=== PATIENT | female | born 1955 | race Caucasian/White ===

== ENCOUNTER → 2023-07-09 11:45 | Outpatient (REF) | payer OTHER, SELFPAY | LOC: HWWDC 11:45 | PROVIDERS: ATTENDING PHYSICIAN Obstetrics & Gynecology Gynecology; FAMILY PHYSICIAN Student in an Organized Health Care Education/Training Program | DX: Z12.31 Encounter for screening mammogram for malignant neoplasm of breast (principal) | CPT/HCPCS: 77063; 77067 ==

== ENCOUNTER → 2023-10-09 06:47 | Outpatient (REF) | payer OTHER, SELFPAY | LOC: MRI 3T 06:47 | PROVIDERS: ATTENDING PHYSICIAN Student in an Organized Health Care Education/Training Program | DX: M54.31 Sciatica, right side (principal) | CPT/HCPCS: 72148 ==

== ENCOUNTER → 2024-04-09 19:39 | Outpatient (REF) | payer OTHER, SELFPAY | LOC: MRI 19:39 | PROVIDERS: ATTENDING PHYSICIAN Psychiatry & Neurology Neurology; FAMILY PHYSICIAN Student in an Organized Health Care Education/Training Program | DX: M54.16 Radiculopathy, lumbar region (principal) | CPT/HCPCS: 72158; A9575 ==

== ENCOUNTER → 2024-04-18 13:15 | Outpatient (REF) | payer OTHER, SELFPAY | LOC: HWRAD 13:15 | PROVIDERS: ATTENDING PHYSICIAN Physician Assistant; FAMILY PHYSICIAN Student in an Organized Health Care Education/Training Program; REFERRING PHYSICIAN Internal Medicine Medical Oncology | DX: H65.21 Chronic serous otitis media, right ear (principal) | CPT/HCPCS: 70480 ==

== ENCOUNTER → 2024-05-09 16:57 | Outpatient (REF) | payer OTHER, SELFPAY | LOC: MRI 3T 16:57 | PROVIDERS: ATTENDING PHYSICIAN Psychiatry & Neurology Neurology; FAMILY PHYSICIAN Student in an Organized Health Care Education/Training Program | DX: G58.0 Intercostal neuropathy (principal) | CPT/HCPCS: 72197; A9575 ==

== ENCOUNTER → 2024-07-22 14:01 | Outpatient (REF) | payer OTHER, SELFPAY ==
[2024-07-22 14:41] LABS: % Basophils 0.5 % (0-2); % Eosinophils 1.8 % (0-6); % Immature Granulocytes 0.3 % (0-0.5); % Lymphocytes 8.3 % (20.5-51.1); % Monocytes 12.1 % (1.7-9.3); Absolute Eosinophils 0.1 10^3/uL (0-0.7); Absolute Lymphocytes 0.3 10^3/uL (1.2-3.4); Absolute Monocytes 0.5 10^3/uL (0.1-0.6); Absolute Neutrophils 3.1 10^3/uL (1.4-6.5); Hematocrit 28.4 % (37.0-47.0); Hemoglobin 9.6 g/dL (12.0-16.0); Mean Corp Hgb Conc. 33.8 g/dL (33.0-37.0); Mean Corpuscular Hgb 32.3 pg (27.0-31.0); Mean Corpuscular Volume 95.6 fL (81.0-99.0); Mean Platelet Volume 10.3 fL (7.4-10.4); Nucleated Red Blood Cells % 0 %; Platelet Count 122 10^3/uL (130-400); Red Blood Cell Count 2.97 10^6/uL (4.20-5.40)
[2024-07-22 14:43] LABS: Urine Albumin 1+ (Neg - Trace); Urine Bilirubin Negative (Negative); Urine Character Clear (Clear); Urine Color Yellow; Urine Glucose Negative (Negative); Urine Ketone Negative (Negative); Urine Leukocyte 1+ (Negative); Urine Nitrite Negative (Negative); Urine Occult Blood Negative (Negative); Urine Specific Gravity 1.015 (<1.030); Urine Urobilinogen Negative (Neg - 1+)
[2024-07-22 14:49] LABS: ALT (SGPT) 13 U/L (0-35); AST (SGOT) 18 U/L (14-36); Albumin 3.8 g/dl (3.5-5.0); Alkaline Phosphatase 38 U/L (38-126); Blood Urea Nitrogen 31 mg/dl (7-17); Calcium 9.3 mg/dl (8.4-10.2); Carbon Dioxide 32 mmol/L (22-30); Chloride 98 mmol/L (98-107); Glucose 93 mg/dl (70-99); Sodium 138 mmol/L (135-145); Total Bilirubin 0.4 mg/dl (0.2-1.3); eGFR > 60.00
[2024-07-22 15:04] LABS: Procalcitonin < 0.05 ng/ml (0.0-0.25)
[2024-07-22 15:10] LABS: Urine Bacteria Few (Negative); Urine Red Blood Cell 0-2 /HPF (0-2); Urine Squamous Cell 0-2 /LPF (Few)
[2024-07-22 15:17] LABS: Erythrocyte Sed Rate 21 mm/hour (0-20)
[2024-07-22 15:42] LABS: D-Dimer 2.07 ug/mlFEU (0.00-0.50)
== END ==
LOC: REG 14:01
PROVIDERS: ATTENDING PHYSICIAN Student in an Organized Health Care Education/Training Program
DX: I95.9 Hypotension, unspecified (principal)
CPT/HCPCS: 36415; 80053; 81003; 81015; 84145; 85025; 85379; 85652; 87086

== ENCOUNTER 2024-07-22 15:42 | Emergency (ER) | payer OTHER, SELFPAY ==
[2024-07-22 15:46] VITALS: BP 100/54
[2024-07-22 17:32] VITALS: BP 101/50
[2024-07-22 18:00] VITALS: BP 91/44
[2024-07-22 19:00] VITALS: BP 98/53
[2024-07-22] MEDS: NSS 1000 IV (19:43)
[2024-07-22 20:00] VITALS: BP 115/63
[2024-07-22 20:13] LABS: COVID-19 Antigen Negative (Negative)
[2024-07-22 21:00] VITALS: BP 92/52
--- NOTE | 2024-07-22 21:36 | ED.GENMED ---
History of Present Illness
General
Chief Complaint: Blood Pressure Problem
Source: patient and spouse
Time Seen by Provider: 07/22/24 17:58
History of Present Illness
History of Present Illness:
68-year-old female with a significant past medical history including lung cancer which has become widely metastatic including brain and spine. Patient is unable to ambulate due to the spinal mets. She has received radiation of the brain into the
spine. Because of her inability to ambulate she has started develop a small pressure ulcer on the sacrum. Blood pressure today was measured as quite low so patient was referred to the emergency room. She reportedly had a fever at home. She
reports to be up to 101. She denies cough, chest pain, shortness of breath. She is not vomiting but has poor oral intake.
Past History
Past History
ED Past Medical History: HTN and Hypercholesterolemia
ED Past Surgical History: Gynecological (Benign lumps removed from breast) and Orthopedic
Social History
Tobacco: Non-smoker
Alcohol: Occasional
Drug: None
Personal:
Living: with family
Employment: Other (Laid off until April)
Family History
Family History: Unable to obtain
Phy Exam
Physical Exam
Physical Exam:
General: Awake, Alert, Oriented X3. Chronic ill-appearing and cachectic
Vitals: Mildly hypotensive
Head: Atraumatic
Eyes: Pupils equal, EOMI
Throat: Airway intact, no exudates, dry mucosa
Neck: Trachea midline
Lungs: Clear and equal b/l
Heart: Regular rate, no murmurs
Abd: Soft, Nontender, No pulsatile mass
Rectal: Deferred. Wound noted over the sacrum which is about the size of a dime.
Neuro: Lower extremity weakness related to spinal mets
Skin: Warm, dry, no rash
Extremities: pulses equal b/l, no edema
Course
Orders/Labs/Results
Orders:
Orders
07/22/24 19:00
0.9% Sodium Chloride 1000 ml [Nss] 1,000 ml IV BOLUS
07/22/24 19:44
COVID-19 Antigen Urgent
Source: Nasal Swab
Influenza A+B Rapid Molecular Urgent
RACHAEL Source: Nasal Swab
Specimen Description:
Vital Signs
Initial and Last Documented VS:
Initial Vital Signs
Temp Pulse Resp BP Pulse Ox
98.5 F 68 16 100/54 98
07/22/24 15:46 07/22/24 15:46 07/22/24 15:46 07/22/24 15:46 07/22/24 15:46
Last Documented Vital Signs
Temp Pulse Resp BP Pulse Ox
98.5 F 65 15 92/52 97
07/22/24 15:46 07/22/24 21:45 07/22/24 21:45 07/22/24 21:00 07/22/24 21:45
MDM/Problems Addressed
Differential Diagnosis Includes:
Dehydration, anemia, hypotension from sepsis.
MDM/Problems Addressed:
Patient presents with generalized weakness, poor oral intake and hypotension noted by visiting nurse. Patient appears dehydrated. She better after IV fluid. She is not febrile here. COVID and flu are negative. Patient had outpatient labs this
morning which showed a normal procalcitonin, normal urinalysis. Patient's white count was normal. She is not neutropenic. A chest x-ray was ordered however the patient alerted the nurse that she is feeling much better after IV hydration and is
anxious to be discharged home. That we have not completely excluded all possible reasons for hypotension I think it is likely related to poor oral intake and dehydration. Given patient's widely metastatic disease I think it is reasonable for her
to spend as much time at home as possible. If she desires to be discharged I do not have a problem with that patient can follow-up with her oncologist as an outpatient
*Pulse Oximetry
Patient hypoxic: no
*Critical Care Note
Total Time (30-74mins, 75-104mins- exclusive of procedures): Not Applicable
Patient Management
Social determinants of health affecting care: Strong social support
ED Attending Note
-
Portions of this chart may have been created with voice recognition software.� Occasional wrong word or��sound alike� substitutions may have occurred due to the inherent limitations of voice recognition software.
Discharge Plan
Departure
Patient Disposition: Home (Routine Discharge)
Date of Disposition: 07/22/24
Time of Disposition: 21:37
Patient with high blood pressure during this ER visit?: No
Condition: Good
Discharge Problem:
Acute dehydration, Lung cancer
Instructions: Dehydration in adults - ED discharge instructions
Prescriptions:
No Action
atorvastatin 10 mg tablet
10 mg PO DAILY
esomeprazole magnesium [Nexium] 20 mg Capsule,Delayed Release(Dr/Ec)
20 mg PO DAILY
meclizine 25 mg Tablet
25 mg PO Q8HPRN PRN (Reason: Dizziness / nausea) Qty: 10 0RF
ondansetron 4 mg Tablet,Disintegrating
4 mg PO Q8H
nitrofurantoin macrocrystal 100 mg Capsule
100 mg PO BID
Rx Instructions:
just started on 07/03/22
Referrals:
Sharmin Mattson MD [Family Provider] -
Interventions
Interventions:
*Risk Screen - Suicide Last Done: 07/22/24 15:46
*General Assessment Last Done: 07/22/24 15:46
*Neglect/Abuse Screening Last Done: 07/22/24 17:41
*ED- Fall Risk Assessment Last Done: 07/22/24 17:41
*ED COVID-19 Vaccine History Last Done: 07/22/24 15:46
*Nursing Disposition Last Done: 07/22/24 22:09
ED- Cardiac Assessment Last Done: 07/22/24 19:32
ED- Neurological Assessment Last Done: 07/22/24 19:32
ED- Pulmonary Assessment Last Done: 07/22/24 19:32
Discharge Date and Time
Discharge Date/Time: 07/22/24 22:09
Print Language: HUNGARIAN
== END 2024-07-22 22:09 | disposition home or self-care (01) ==
LOC: EMR 15:42
PROVIDERS: EMERGENCY PHYSICIAN Emergency Medicine; FAMILY PHYSICIAN Student in an Organized Health Care Education/Training Program
DX: E86.0 Dehydration (principal); C34.90 Malignant neoplasm of unspecified part of unspecified bronchus or lung; C79.31 Secondary malignant neoplasm of brain; C79.51 Secondary malignant neoplasm of bone; E78.00 Pure hypercholesterolemia, unspecified; I10 Essential (primary) hypertension; Z92.3 Personal history of irradiation; Z11.52 Encounter for screening for COVID-19
CPT/HCPCS: 96360; 99284; 87502; 87811

== ENCOUNTER 2024-08-04 22:28 | Inpatient (IN) | payer OTHER, SELFPAY ==
[2024-08-04] VITALS (7 sets, daily range): BP systolic 90–103; BP diastolic 55–68; BMI 16.1
[2024-08-04 14:47] LABS: % Basophils 0.3 % (0-2); % Eosinophils 0.1 % (0-6); % Immature Granulocytes 0.5 % (0-0.5); % Lymphocytes 3.8 % (20.5-51.1); % Monocytes 6.8 % (1.7-9.3); % Neutrophils 88.5 % (42.2-75.2); Absolute Immature Granulocytes 0.1 10^3/uL (0-0.05); Absolute Lymphocytes 0.4 10^3/uL (1.2-3.4); Absolute Monocytes 0.7 10^3/uL (0.1-0.6); Absolute Neutrophils 8.5 10^3/uL (1.4-6.5); Hemoglobin 8.7 g/dL (12.0-16.0); Mean Corp Hgb Conc. 33.5 g/dL (33.0-37.0); Mean Corpuscular Hgb 32.3 pg (27.0-31.0); Mean Corpuscular Volume 96.7 fL (81.0-99.0); Mean Platelet Volume 10.5 fL (7.4-10.4); Nucleated Red Blood Cells % 0 %; Platelet Count 145 10^3/uL (130-400); Red Blood Cell Count 2.69 10^6/uL (4.20-5.40); Red Cell Dist. Width 14.5 % (11.5-14.5); White Blood Cell Count 9.6 10^3/uL (4.8-10.8)
[2024-08-04 14:57] LABS: Albumin 3.2 g/dl (3.5-5.0); Blood Urea Nitrogen 34 mg/dl (7-17); Carbon Dioxide 32 mmol/L (22-30); Total Protein 5.7 g/dl (6.3-8.2); eGFR > 60.00
[2024-08-04 15:18] LABS: ALT (SGPT) 15 U/L (0-35); AST (SGOT) 23 U/L (14-36); Alkaline Phosphatase 71 U/L (38-126); Calcium 9.1 mg/dl (8.4-10.2); Chloride 96 mmol/L (98-107); Glucose 119 mg/dl (70-99); Potassium 4.7 mmol/L (3.5-5.1); Sodium 134 mmol/L (135-145); Total Bilirubin 0.4 mg/dl (0.2-1.3)
--- NOTE | 2024-08-04 18:38 | ED.GENMED ---
History of Present Illness
General
Chief Complaint: Skin Problem
Time Seen by Provider: 08/04/24 18:38
History of Present Illness
History of Present Illness:
TIME OF INITIAL ENCOUNTER: 6:55 PM
HPI: The patient has metastatic lung cancer to the spine/brain. Some of her care is at [place] and she also gets radiation here at [facility]. She has been having increasing pain over the sacral region. Visiting nurse sent her here for further
evaluation.
EXAM:
GENERAL: The patient is chronically ill in appearance and appears somewhat with muscle wasting
HEENT: Moist oral mucosa
CARDIOVASCULAR: No murmurs, normal heart rate, regular rhythm, No chest wall tenderness
PULMONARY: No respiratory distress, breath sounds are clear and equal
ABDOMEN: Soft with no peritoneal signs, no tenderness
NEUROLOGIC: Excellent strength all extremities, no coordination deficits
PSYCHIATRIC: Appropriate mental status, normal insight and judgement
EXTREMITIES: Nontender, no edema, moves all extremities equally
SKIN/BACK: Relatively large area of erythema and warmth along with crepitus over the skin of the sacral region that extends to the upper buttocks left greater than right, there is a central skin defect with fibrinous material
NUMBER AND COMPLEXITY OF PROBLEMS ADDRESSED AT THE ENCOUNTER
� Chronic conditions affecting care: Metastatic lung cancer, high blood pressure, hyperlipidemia, GERD
� Acute Exacerbation and/or Progression of Chronic Illness: This is an acute problem
� Differential Diagnosis includes: Cellulitis, abscess, gas-forming organism, necrotizing fasciitis
AMOUNT AND/OR COMPLEXITY OF DATA TO BE REVIEWED AND ANALYZED
� I performed an independent evaluation of and my interpretation is:
EKG:
CT: I personally viewed CT imaging and agree with radiologist interpretation that there is a large left buttock abscess
X-rays:
Laboratory Studies: White count 9.6, hemoglobin to 8.7, sodium 134, bicarb 32, creatinine 0.7, BUN 34, lactic normal at 0.7
Other:
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
� Clinical information was obtained by an independent historian: I spoke to at bedside
� Prescriptions/Medications Considered but not given:
� Further testing considered but not performed:
RISK OF COMPLICATIONS AND/OR MORBIDITY OR MORTALITY OF PATIENT MANAGEMENT
� Social determinants of health affecting care: Lives at home
� Discussion with other providers: Hospitalist, Dr. Monroy for admission
� Escalation of care including admission/observation vs risk of discharge considered: The patient has a relatively large area of concerned in the upper buttock/sacral region. Indurated tissue with possible abscess. Crepitus
noted on exam. CT imaging obtained. She has been mildly hypotensive here.
ANY OTHER UPDATES:
I drained relatively large amount of pus from the abscess and broke up loculations. She has been hypotensive and has been giving IV fluids. Given clinda (for possible gas-forming organisms) and vancomycin.
Past History
Past History
ED Past Medical History: HTN and Hypercholesterolemia
ED Past Surgical History: Gynecological (Benign lumps removed from breast) and Orthopedic
Social History
Tobacco: Non-smoker
Alcohol: Occasional
Drug: None
Personal:
Living: with family
Employment: Other (Laid off until April)
Family History
Family History: Unable to obtain
Phy Exam
Physical Exam
Physical Exam:
See HPI
Course
Orders/Labs/Results
Orders:
Orders
08/04/24 14:37
Complete Blood Count/With Diff Urgent
Comprehensive Metabolic Panel Urgent
08/04/24 18:47
CT Pelvis With Iv Contrast Urgent
Comment:
Reason For Exam: eval infection pilonidal region; crepitus
08/04/24 18:49
Vancomycin 1 Gram/200 ml [Vancocin] 1 gram in 200 ml IV NOW
08/04/24 18:55
Lactic Acid Q4H
Comment: CANCEL 2nd LACTIC ACID IF 1st LACTIC ACID IS LESS THAN 2
Wound Culture [Wound/Abscess/Other Culture] Urgent
RACHAEL Source: Pilonidal
Specimen Description:
Date Specimen was Collected: 08/04/24
Time Specimen was Collected: 18:50
08/04/24 18:56
Blood Culture Q30M
RACHAEL Source: Blood/Venous
Specimen Description:
Blood Culture Q30M
RACHAEL Source: Blood/Venous
Specimen Description:
08/04/24 19:10
Clindamycin 600 mg/50 ml [Cleocin] 600 mg in 50 ml IV NOW
08/04/24 19:28
HYDROmorphone [Dilaudid] 1 mg .ROUTE .STK-MED ONE
08/04/24 19:29
HYDROmorphone [Dilaudid] 1 mg IV NOW STA
08/04/24 20:36
0.9% Sodium Chloride 1000 ml [Nss] 1,000 ml IV BOLUS
08/04/24 21:16
HYDROmorphone [Dilaudid] 1 mg IV NOW STA
08/04/24 21:23
Wound Culture [Wound/Abscess/Other Culture] Urgent
RACHAEL Source: Abscess
Specimen Description:
Date Specimen was Collected: 08/04/24
Time Specimen was Collected: 21:22
Abnormal Lab Results
08/04/24
14:37
RBC 2.69 L 10^6/uL
(4.20-5.40)
Hgb 8.7 L g/dL
(12.0-16.0)
Hct 26.0 L %
(37.0-47.0)
MCH 32.3 H pg
(27.0-31.0)
MPV 10.5 H fL
(7.4-10.4)
Abs Immat Gran (auto) 0.1 H 10^3/uL
(0-0.05)
Absolute Neuts (auto) 8.5 H 10^3/uL
(1.4-6.5)
Absolute Lymphs (auto) 0.4 L 10^3/uL
(1.2-3.4)
Absolute Monos (auto) 0.7 H 10^3/uL
(0.1-0.6)
Neutrophils % 88.5 H %
(42.2-75.2)
Lymphocytes % 3.8 L %
(20.5-51.1)
Sodium 134 L mmol/L
(135-145)
Chloride 96 L mmol/L
(98-107)
Carbon Dioxide 32 H mmol/L
(22-30)
BUN 34 H mg/dl
(7-17)
Glucose 119 H mg/dl
(70-99)
Total Protein 5.7 L g/dl
(6.3-8.2)
Albumin 3.2 L g/dl
(3.5-5.0)
08/04/24 14:37
08/04/24 14:37
Vital Signs
Initial and Last Documented VS:
Initial Vital Signs
Temp Pulse Resp BP Pulse Ox
36.7 C 81 16 90/56 98
08/04/24 14:30 08/04/24 14:30 08/04/24 14:30 08/04/24 14:30 08/04/24 14:30
Last Documented Vital Signs
Temp Pulse Resp BP Pulse Ox
36.7 C 97 14 92/56 96
08/04/24 14:30 08/04/24 20:00 08/04/24 20:00 08/04/24 20:00 08/04/24 20:00
Procedures
Incision/Drainage/Joint Aspiration
Left Upper Buttock:
Anethesia: 1% Lidocaine with Epi
Preparation: cleaned with alcohol wipe
Type of procedure: incise and drain
Nature of site: abscess
Description of abscess: greater than 3cm
Loculations broken up: Yes
How much fluid was obtained?: large amount
Fluid description: purulent
Treatment: left open for drainage
*Critical Care Note
Total Time (30-74mins, 75-104mins- exclusive of procedures): Not Applicable
ED Attending Note
-
Portions of this chart may have been created with voice recognition software.� Occasional wrong word or��sound alike� substitutions may have occurred due to the inherent limitations of voice recognition software.
Discharge Plan
Departure
Patient Disposition: Admit
Date of Disposition: 08/04/24
Time of Disposition: 21:29
Presentation/result/management discussed w/ accepting MD/DO: Hospitalist
Patient with high blood pressure during this ER visit?: Yes
Discharge Problem:
Abscess of buttock, left
Prescriptions:
No Action
esomeprazole magnesium [Nexium] 20 mg Capsule,Delayed Release(Dr/Ec)
20 mg PO DAILY
acetaminophen [Tylenol] 325 mg Tablet
650 mg PO Q6HPRN PRN (Reason: headaches)
midodrine 5 mg Tablet
5 mg PO BIDPRN PRN (Reason: low blood pressure)
Theragen Tablet
1 tab PO DAILY
morphine 30 mg Tablet Extended Release
30 mg PO Q12H
olanzapine 2.5 mg Tablet
2.5 mg PO HS
aspirin 81 mg Tablet,Delayed Release (Dr/Ec)
81 mg PO DAILY
pregabalin [Lyrica] 50 mg Capsule
50 mg PO HS
Tagrisso 80 mg Tablet
80 mg PO HS
magnesium oxide 400 mg magnesium Tablet
400 mg PO BID
Referrals:
Sharmin Mattson MD [Family Provider] -
Interventions
Interventions:
*Risk Screen - Suicide Last Done: 08/04/24 14:30
*Neglect/Abuse Screening Last Done: 08/04/24 14:30
ED-Skin Assessment Last Done: 08/04/24 19:00
Discharge Date and Time
Print Language: [place]ER[place] LEONE[place]
[2024-08-04 19:22] LABS: Lactic Acid 0.7 mmol/L (0.7-2.0)
[2024-08-04] MEDS: CLEOCIN 50 IV (19:27)
[2024-08-04] MEDS: DILAUDID 1 MG IV ×2 (19:35→21:26)
[2024-08-04] MEDS: VANCOCIN 200 IV (20:05)
[2024-08-04] MEDS: NSS 1000 IV ×2 (20:45→23:58)
--- NOTE | 2024-08-04 22:02 | HPS.HSE ---
Family Physician
-
Family Physician: Sharmin Mattson MD
Chief Complaint
-
butt pain
History of Present Illness
68-year-old female past medical history of metastatic lung cancer on Tagrisso with metastases to spine/brain status post radiation to the spine, hypertension, hyperlipidemia, presenting with increased pain over the sacral region over the past month,
with worsening abscess and drainage. Her states that she has been very immobile over the past month and visiting nurse have been applying honey to the abscess.
She did have intermittent chills. No fever.
Patient's blood pressure is normally in the 90s which has been the case after radiation.
She is a former smoker. Used to drink alcohol.
Medical History
Past Medical History
Past Medical History: Reports Other (metastatic lung cancer on Tagrisso with metastases to spine/brain status post radiation to the spine, hypertension, hyperlipidemia,)
Past Surgical History: Reports None
Social History
Tobacco: Former Smoker
Alcohol: Occasional
Drug: None
Family History
Family History: Not pertinent
Allergies / Home Medications
Allergies reflects when Allergies were last updated in [facility].
Home Medications with original date entered in [facility]
Allergy/Medication List:
Allergies
Allergy/AdvReac Type Severity Reaction Status Date / Time
meloxicam Allergy Unknown Verified 08/04/24 14:32
Home Medications
esomeprazole magnesium 20 mg capsule,delayed release (Nexium) 20 mg PO DAILY Gastrointestinal issue 06/07/22
acetaminophen 325 mg tablet (Tylenol) 650 mg PO Q6HPRN PRN headaches 08/04/24
aspirin 81 mg tablet,delayed release 81 mg PO DAILY 08/04/24
magnesium oxide 400 mg PO BID 08/04/24
midodrine 5 mg tablet 5 mg PO BIDPRN PRN low blood pressure 08/04/24
morphine 30 mg tablet,extended release 30 mg PO Q12H 08/04/24
olanzapine 2.5 mg tablet 2.5 mg PO HS 08/04/24
osimertinib 80 mg tablet (Tagrisso) 80 mg PO HS 08/04/24
pregabalin 50 mg capsule (Lyrica) 50 mg PO HS 08/04/24
therapeutic multivitamin 1 tab PO DAILY 08/04/24
Review of Systems
-
History Source: Patient
A 12 point ROS was completed and negative except as noted: Yes
Constitutional: Reports No Symptoms
EENT: Reports No Symptoms
Respiratory: Reports No Symptoms
Cardiac: Reports No Symptoms
Abdomen/GI: Reports No Symptoms
: Reports No Symptoms
Musculoskeletal: Reports No Symptoms
Skin: Reports See HPI
Neurological: Reports No Symptoms
Endocrine: Reports No Symptoms
Hematologic/Lymphatic: Reports No Symptoms
Psych: Reports No Symptoms
Physical Exam
Vital Signs
Vital Signs
Temp Pulse Resp BP Pulse Ox
98.0 F 75 29 102/65 96
08/04/24 14:30 08/04/24 21:45 08/04/24 21:45 08/04/24 21:03 08/04/24 21:45
Physical Exam
General: Well Developed, Well Nourished and No Apparent Distress
HEENT: NormoCephalic, Moist mucous membranes and Atraumatic
Respiratory: Clear
Cardiac: S1/S2 and Regular Rhythm; No Murmur or Rub
GI: Soft, Non Tender, Non Distended and Normal Bowel Sounds; No Organomegaly
Rectal: Deferred by Provider
Musculoskeletal: No Clubbing, No Cyanosis and No Edema
Skin: Other (right buttock abscess, surround cellulitis ); No Rash
Neuro: Nonfocal/grossly intact
Laboratory Results
-
08/04/24 14:37
08/04/24 14:37
Laboratory Results
Lactic Acid Cancelled 08/04/24 23:00
Total Bilirubin 0.4 mg/dl (0.2-1.3) 08/04/24 14:37
AST 23 U/L (14-36) 08/04/24 14:37
ALT 15 U/L (0-35) 08/04/24 14:37
Alkaline Phosphatase 71 U/L (38-126) 08/04/24 14:37
Data Reviewed
-
Lab Data: Labs Reviewed by me
Old Records: Reviewed
Impression/Plan
-
IMPRESSION:
PLAN:
# Right buttock abscess with surrounding myositis/cellulitis secondary to immobility possibly related to prior radiation of the spine
- Pelvic CT shows 8.4 cm soft tissue abscess in the right buttock, severe acute myositis in the right gluteus aurora, severe cellulitis throughout the buttocks and lower back, osseous metastasis in the right side of the sacrum proximal left femur
unchanged
- ER drained pus and broke up loculations but seems to be more purulent material inside
- Wound culture pending
- Blood cultures
- Vancomycin Zosyn
- General Surgery consulted for consideration of further drainage
- N.p.o. past midnight
# Normocytic anemia
- Hemoglobin 8.7
- From 9.6 in July
- Check iron studies, B12 and folate
History of metastatic lung cancer with metastasis to spine/brain status post spine radiation
- On Tagrisso, continue
- Continue Tylenol, pregabalin, morphine for pain
Essential hypertension
History of hypotension
-Blood pressure normally 90s
- Continue midodrine
Hyperlipidemia
GERD
- Continue esomeprazole
Psychiatric
- Continue olanzapine
Full code
DVT prophylaxis�heparin
N.p.o. past midnight
[2024-08-05] VITALS (29 sets, daily range): BP systolic 70–111; BP diastolic 35–68
[2024-08-05] MEDS: LYRICA 50 MG PO (00:01)
[2024-08-05] MEDS: ZYPREXA 2.5 MG PO (00:01)
[2024-08-05] MEDS: MS CONTIN (EXTENDED RELEASE) 30 MG PO ×2 (00:04→12:30)
[2024-08-05] MEDS: ZOSYN 50 IV ×4 (00:04→21:25)
[2024-08-05 00:27] LABS: Iron 22 ug/dl (37-170)
[2024-08-05 00:36] LABS: Percent Saturation 14 % (20-50); Total Iron Binding Capacity 152 ug/dl (265-497)
[2024-08-05 01:33] LABS: Folate > 20.0 ng/ml (2.76-20); Vitamin B12 645 pg/ml (239-931)
[2024-08-05 06:59] LABS: ALT (SGPT) 12 U/L (0-35); AST (SGOT) 16 U/L (14-36); Albumin 2.6 g/dl (3.5-5.0); Alkaline Phosphatase 69 U/L (38-126); Blood Urea Nitrogen 25 mg/dl (7-17); Calcium 8.7 mg/dl (8.4-10.2); Carbon Dioxide 31 mmol/L (22-30); Chloride 100 mmol/L (98-107); Estimated Creatinine Clearance 53 ml/min; Glucose 89 mg/dl (70-99); Potassium 4.2 mmol/L (3.5-5.1); Sodium 135 mmol/L (135-145); Total Bilirubin 0.5 mg/dl (0.2-1.3); Total Protein 4.8 g/dl (6.3-8.2); eGFR > 60.00
[2024-08-05 07:04] LABS: Hematocrit 22.1 % (37.0-47.0); Hemoglobin 7.5 g/dL (12.0-16.0); Mean Corp Hgb Conc. 33.9 g/dL (33.0-37.0); Mean Corpuscular Hgb 32.1 pg (27.0-31.0); Mean Corpuscular Volume 94.4 fL (81.0-99.0); Mean Platelet Volume 10.6 fL (7.4-10.4); Platelet Count 156 10^3/uL (130-400); Red Blood Cell Count 2.34 10^6/uL (4.20-5.40); Red Cell Dist. Width 14.5 % (11.5-14.5); White Blood Cell Count 8.7 10^3/uL (4.8-10.8)
[2024-08-05 07:46] LABS: Band Neutrophils 10 % (0-3); Eosinophils 1 % (0-6); Lymphocytes 3 % (20-51); Monocytes 3 % (2-9); Platelets Checked Yes; Segmented Neutrophils 83 % (42-75)
[2024-08-05 07:47] LABS: Normal RBC Morphology Yes; Total Cells Counted 100
[2024-08-05] MEDS: MAGNESIUM OXIDE 500 MG PO ×2 (08:13→19:51)
[2024-08-05] MEDS: HEPARIN 5000 UNITS SC ×2 (08:13→19:51)
[2024-08-05] MEDS: ASPIR LOW (ENTERIC COATED) 81 MG PO (08:13)
[2024-08-05] MEDS: THERAGRAN 1 TABLET PO (08:13)
[2024-08-05] MEDS: PROTONIX 40 MG PO (08:13)
[2024-08-05] MEDS: NSS 1000 IV ×2 (08:18→17:41)
--- NOTE | 2024-08-05 08:34 | PHA.VAN.IN ---
Assessment
- Assessment
Renal Function: Appears similar to baseline
Concomitant Antimicrobials: piperacillin/tazobactam
AUC Dosing Plan
- Dosing Variables
Dosing Weight (kg): 55
Dosing CrCl (ml/min): 68
Vd coefficient (L/kg): 0.7
Utilized IBW for dosing weight & CrCl calculations given BMI < 18.5
Additionally, patients with cancer may have increased vancomycin clearance (Pharmacotherapy. 2019;[id number])
- Empiric Dosing
Initial / Loading Dose: 1000mg - 5/5 20:05
Maintenance Regimen: Vanc 500mg Q12H - first dose now then at 1800
Estimated AUC (mcg*h/mL): 440
Estimated Peak (mcg*h/mL): 25.1
Estimated Trough (mcg/ml): 12.8
Estimated Half Life (H): 11.4
- Monitoring
No levels ordered at this time: consider levels in next few days
Pharmacokinetics Vancomycin I
- -
Patient Age: 68
Patient Sex: Female
Vancomycin Day #: 1
Indication: Skin And Soft Tissue
Requesting Provider: Dr. Jo
Pertinent Antimicrobial Allergies:
no pertinent antibiotic allergies
Height / Weight:
Height 5 ft 4 in
Actual Weight 42.5 kg
IBW in k.7
Pertinent Past Medical History: BMI ~16.1, metastatic lung cancer, immobility
- Vital Signs / Lab Results
Temp Pulse Resp BP Pulse Ox
100.1 F 78 21 91/56 92
08/05/24 06:26 08/05/24 07:45 08/05/24 07:45 08/05/24 07:00 08/05/24 07:45
Lab Results - Hematology
08/04/24 08/05/24
14:37 06:20
WBC 9.6 8.7
Band Neutrophils 10 H
Lab Results - Chemistry
08/04/24 08/05/24
14:37 06:20
BUN 34 H 25 H
Creatinine 0.7 0.7
Estimated Creat Clear 53
Albumin 3.2 L 2.6 L
08/04/24 08/04/24
18:55 23:00
Lactic Acid 0.7 Cancelled
--- NOTE | 2024-08-05 10:28 | CON.GS ---
Medical History
-
Chief Complaint: RIGHT buttock/sacral pain and drainage
History of Present Illness:
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 Patient is hard of hearing and the majority of her
history was obtained by her at bedside. He reports no known prior sacral or gluteal wounds prior to the end of July. She completed radiation back in May 2024. She has had visiting nurses providing wound care to the area. He reports
that they have been applying honey and has had intermittent drainage over the area. He notes increased swelling, redness, pain, and drainage. No fevers or chills. She is limited at baseline due to pain and weakness. Poor nutrition but able to
tolerate a regular diet. She does have some issues with incontinence. Reports that she has been largely constipated due to pain medications.
Past Medical History
Past Medical History: Cancer (Stage IV lung cancer with known metastases to the spine and brain), HTN and Hypercholesterolemia
Past Surgical History: None
Social History
Tobacco: Former Smoker
Alcohol: Occasional
Drug: None
Personal:
Living: With Family
Family History
Family History: Reviewed & Not Pertinent
Allergies / Home Medications
Allergy/AdvReac Type Severity Reaction Status Date / Time
meloxicam Allergy Unknown Verified 08/04/24 14:32
�Medication �Instructions �Recorded �Confirmed �Type
esomeprazole magnesium 20 mg 20 mg PO DAILY Gastrointestinal 06/07/22 08/04/24 History
capsule,delayed release (Nexium) issue
acetaminophen 325 mg tablet 650 mg PO Q6HPRN PRN headaches 08/04/24 08/04/24 History
(Tylenol)
aspirin 81 mg tablet,delayed 81 mg PO DAILY 08/04/24 08/04/24 History
release
magnesium oxide 400 mg PO BID 08/04/24 08/04/24 History
midodrine 5 mg tablet 5 mg PO BIDPRN PRN low blood 08/04/24 08/04/24 History
pressure
morphine 30 mg tablet,extended 30 mg PO Q12H 08/04/24 08/04/24 History
release
olanzapine 2.5 mg tablet 2.5 mg PO HS 08/04/24 08/04/24 History
osimertinib 80 mg tablet (Tagrisso) 80 mg PO HS 08/04/24 08/04/24 History
pregabalin 50 mg capsule (Lyrica) 50 mg PO HS 08/04/24 08/04/24 History
therapeutic multivitamin 1 tab PO DAILY 08/04/24 08/04/24 History
Review of Systems
-
A 10 point review of systems was completed, and was negative except as per HPI.
Physical Exam
Vital Signs
Temp Pulse Resp BP Pulse Ox
100.1 F 78 14 93/64 94
08/05/24 06:26 08/05/24 10:00 08/05/24 10:00 08/05/24 10:00 08/05/24 10:00
08/04/24 08/05/24 08/06/24
06:59 06:59 06:59
Actual Weight 42.5 kg
Body Mass Index (BMI) 16.1
Lab Results
08/05/24 06:20
08/05/24 06:20
WBC 8.7 10^3/uL (4.8-10.8) 08/05/24 06:20
Hgb 7.5 g/dL (12.0-16.0) L 08/05/24 06:20
Hct 22.1 % (37.0-47.0) L 08/05/24 06:20
Plt Count 156 10^3/uL (130-400) 08/05/24 06:20
Abs Immat Gran (auto) 0.1 10^3/uL (0-0.05) H 08/04/24 14:37
Neutrophils % 88.5 % (42.2-75.2) H 08/04/24 14:37
Physical Exam
General: No Apparent Distress
HEENT: Normocephalic and Anicteric
Respiratory: Non Labored Respirations
Cardiac: Regular Rhythm
GI: Soft, Non Tender and Non Distended
Rectal: Other (RIGHT buttock and sacral area with 6-7 cm area of swelling, blanching erythema, tender to palpation, small 1 to 2 mm laceration in the skin which does not penetrate beyond the subcutaneous tissues, unable to express any drainage)
Skin: Warm and Dry
Neuro: Nonfocal/Grossly Intact
Data Reviewed
-
CT Scan: Image Personally Visualized and interpreted and Report Reviewed by me
MRI: Image Personally Visualized and interpreted and Report Reviewed by me
Labs: Labs Reviewed by me
Assessment / Plan
-
Patient is a 68 yo F p/w unstageable pressure wound with subsequent abscess to the RIGHT gluteus and sacral area
Issue likely multifactorial with a combination of pressure from immobility over the last few months related to her chronic sciatic pain and radiation treatments, known metastatic disease to the spine, malnutrition, and recent radiation inhibiting
wound healing. CT scan imaging and MRI were reviewed. CT demonstrates a large 8.4 cm soft tissue abscess extending down to the sacrum. She has known metastases to the sacrum and LEFT femur. Limited bedside I&D performed by the ER with incomplete
evacuation and management of the abscess. Will need further drainage procedure. We discussed performing this at bedside versus in the operating room. The pros and cons of both approaches was discussed. Patient and expressed significant
discomfort with drainage yesterday and would like to proceed with operative drainage.
Plan for incision and drainage of a RIGHT buttock/sacral abscess. The procedure itself, as well as the risks, benefits, and alternatives was discussed. Specifically, we discussed the risks of bleeding, infection, injury to surrounding structures,
persistent wound infections necessitating further procedures, and nonhealing of the wound. Typical postprocedural recovery was discussed. All questions answered. Consent signed.
-- Drainage of RIGHT buttock/sacral abscess
-- NPO, IVF
-- Abx: Vancomycin and Zosyn
[2024-08-05] MEDS: VANCOCIN HCL 500 MG 100 IV ×2 (12:09→19:54)
--- NOTE | 2024-08-05 14:05 | W.PN.HOSP.TC ---
Today's Communication/Plan
-
Monitor vital signs
see plan
Plan for surgical I&D today
Continue antibiotics
ID evaluation
Follow cultures
Midodrine if needed
Assessment / Plan
Assessment / Plan
General: Well Developed, Well Nourished and No Apparent Distress
HEENT: NormoCephalic, Moist mucous membranes and Atraumatic
Respiratory: Clear
Cardiac: S1/S2 and Regular Rhythm; No Murmur or Rub
GI: Soft, Non Tender, Non Distended and Normal Bowel Sounds
Musculoskeletal: No Edema
Skin: Other (right buttock abscess, surround cellulitis ); No Rash
Neuro: Nonfocal/grossly intact
Right buttock abscess with surrounding myositis/cellulitis secondary to immobility possibly related to prior radiation of the spine
- Pelvic CT shows 8.4 cm soft tissue abscess in the right buttock, severe acute myositis in the right gluteus aurora, severe cellulitis throughout the buttocks and lower back, osseous metastasis in the right side of the sacrum proximal left femur
unchanged
- ER drained pus and broke up loculations but seems to be more purulent material inside
- Wound culture pending. Still has abscesses. Evaluated by surgery, plan for surgical I&D 08/05
- Blood cultures
- Vancomycin Zosyn; infectious disease evaluation
- General Surgery following
# Normocytic anemia; suspect acute on chronic
- From 9.6 in July
monitor; likely could be secondary to malignancy
History of metastatic lung cancer with metastasis to spine/brain status post spine radiation
- On Tagrisso, continue
- Continue Tylenol, pregabalin, morphine for pain
Essential hypertension
History of hypotension
-Blood pressure normally 90s per
- Continue midodrine prn
Hyperlipidemia
GERD
- Continue esomeprazole
Psychiatric
- Continue olanzapine
Full code
DVT prophylaxis�heparin
I spent a total of 52 minutes with the patient or on the floor. More than 50% of this time involved counseling and coordination of care.
Anticipated Discharge: > 48 hours
Subjective/Interval History
-
Date of Service: August 05, 2024
Has some pain
Objective Data
-
Labs:
Laboratory Results
08/05/24
06:20
WBC 8.7
Hgb 7.5 L
Hct 22.1 L
Plt Count 156
Sodium 135
Potassium 4.2
Chloride 100
Carbon Dioxide 31 H
BUN 25 H
Creatinine 0.7
Glucose 89
Calcium 8.7
Total Bilirubin 0.5
AST 16
ALT 12
Alkaline Phosphatase 69
Vital Signs:
Vital Signs
Temp Pulse Resp BP Pulse Ox
100.1 F 70 15 86/56 93
08/05/24 06:26 08/05/24 13:15 08/05/24 13:15 08/05/24 13:00 08/05/24 13:15
--- NOTE | 2024-08-05 15:30 | W.SUR.PREOP ---
Pre-Operative Surgical Note
-
I have examined this patient prior to the performance of the scheduled procedure.
The patient's condition is unchanged from the time of the current History and
Physical and the patient is able to undergo the scheduled procedure.
--- NOTE | 2024-08-05 16:02 | W.IMMPOSTOP ---
Surgical Immed Post Op Note
-
Primary Surgeon: Sarah
Assisting Surgeon: None
Pre-op Diagnosis: RIGHT buttock abscess
Post-op Diagnosis: RIGHT buttock abscess
Procedure Performed: Incision and drainage of RIGHT buttock abscess
Anesthesia Type: MAC/local
Specimen / Cultures:
1. RIGHT buttock abscess culture
Estimated Blood Loss: 11 cc
Complications: None
Operative Findings:
1. Linear incision 3 cm incorporating prior ED I&D with drainage of large volume of purulence 150 cc
2, Loculations broken up, no exposure bone
3. 1/4 in Angelo secured at inferior aspect of incision
4. Stage I pressure ulcer overlying coccyx overlying medial aspect of abscess cavity
[2024-08-05] MEDS: DILAUDID 0.5 MG IV ×2 (16:22→16:59)
--- NOTE | 2024-08-05 18:00 | PTCARENOTE ---
Telephone report received from [employer]aky; patient arrived in bed on telemetry, 2L O2, IVF infusing, surgical wound packed with gauze, 4x4, ABD and tape; VSS; patient placed on static air overlay and on right side; admission history obtained at
bedside, will give detailed report to oncoming nightshift RN to continue with assessment and patient care.
[2024-08-05] MEDS: NON-FORMULARY ITEM 80 MG PO (21:26)
[2024-08-05] MEDS: ProAmatine 5 MG PO (21:54)
[2024-08-05] MEDS: NSS 250 IV (21:59)
[2024-08-05] MEDS: ZOSYN IV (21:59)
[2024-08-05] MEDS: ZYPREXA PO (23:30)
[2024-08-05] MEDS: LYRICA PO (23:30)
[2024-08-05] MEDS: MS CONTIN (EXTENDED RELEASE) PO (23:30)
[2024-08-06] VITALS (7 sets, daily range): BP systolic 86–94; BP diastolic 47–50; BMI 16.1
--- NOTE | 2024-08-06 02:11 | PTCARENOTE ---
@2112 TT FOOD EDITOR Rajinder regarding pt manual BP 80/40. FOOD EDITOR ordered STAT 5mg PO midodrine and IV bolus 250mL. post STAT med BP was 80/35. Again notified FOOD EDITOR. Bedtime meds held as BP low. 0005 pt amb to toilet w RW and staff assist. Was able to void w/o issue,
however, had incont liquid BM walking to bathroom. Per Pt - has had these issues since before this hospital stay, wears own briefs from home. BP was 94/49 at that time. Pt denied pain. Care ongoing.
--- NOTE | 2024-08-06 03:27 | W.PN.UPDATE ---
Update Note
Progress Note Update
RN reported patient BP 80/40 HR 70, patient asymptomatic, hx of hypotension, on Midodrine at home. Will order NS 250ml bolus, Midodrine 5mg POx1.
Repeat BP 80's/30's still, continuos to be asymptomatic Repeat BP in 15 minutes 94/49 HR 90's, IVF maintained. Will hold off PM medications.
[2024-08-06] MEDS: ZOSYN 50 IV ×4 (04:13→21:18)
[2024-08-06] MEDS: NSS 1000 IV ×2 (06:12→20:20)
[2024-08-06] MEDS: VANCOCIN HCL 500 MG 100 IV ×2 (06:12→17:00)
[2024-08-06 07:11] LABS: % Basophils 0.4 % (0-2); % Eosinophils 0.3 % (0-6); % Immature Granulocytes 0.9 % (0-0.5); % Lymphocytes 3.5 % (20.5-51.1); % Monocytes 7.1 % (1.7-9.3); % Neutrophils 87.8 % (42.2-75.2); Absolute Immature Granulocytes 0.1 10^3/uL (0-0.05); Absolute Lymphocytes 0.3 10^3/uL (1.2-3.4); Absolute Monocytes 0.5 10^3/uL (0.1-0.6); Absolute Neutrophils 6.2 10^3/uL (1.4-6.5); Hematocrit 21.7 % (37.0-47.0); Hemoglobin 7.3 g/dL (12.0-16.0); Mean Corp Hgb Conc. 33.6 g/dL (33.0-37.0); Mean Corpuscular Hgb 32.3 pg (27.0-31.0); Mean Platelet Volume 10.9 fL (7.4-10.4); Nucleated Red Blood Cells % 0 %; Platelet Count 142 10^3/uL (130-400); Red Blood Cell Count 2.26 10^6/uL (4.20-5.40); Red Cell Dist. Width 14.6 % (11.5-14.5); White Blood Cell Count 7.1 10^3/uL (4.8-10.8)
[2024-08-06 07:25] LABS: Blood Urea Nitrogen 21 mg/dl (7-17); Calcium 8.3 mg/dl (8.4-10.2); Carbon Dioxide 26 mmol/L (22-30); Chloride 102 mmol/L (98-107); Estimated Creatinine Clearance 62 ml/min; Glucose 85 mg/dl (70-99); Potassium 4.1 mmol/L (3.5-5.1); Sodium 135 mmol/L (135-145); eGFR > 60.00
--- NOTE | 2024-08-06 09:19 | PHA.VAN.FU ---
Vancomycin Assessment / Plan
- Assessment
Renal Function: Stable
WBC's are: WNL
In the past 24 hrs, patient has been: Afebrile
Concomitant Antimicrobials: piperacillin/tazobactam
- Dosing Plan
Continue: vancomycin 500 mg q12h
- Monitoring Plan
Peak Level: 5.7 @ 2100
Trough Level: 5.8 @ 0530
- Follow Up
Pharmacy will continue to follow.
Vancomycin Follow UP
- -
Patient Age: 68
Patient Sex: Female
Vancomycin Day #: 2
Indication: Skin And Soft Tissue
Requesting Provider: Dr. Jo
Pertinent Antimicrobial Allergies:
no pertinent antibiotic allergies
Height / Weight:
Height 5 ft 4 in
Actual Weight 42.5 kg
IBW in k.7
Pertinent Past Medical History: BMI ~16.1, metastatic lung cancer, immobility
- Vital Signs / Lab Results
Temp Pulse Resp BP Pulse Ox
98.2 F 67 15 87/49 96
08/06/24 07:13 08/06/24 07:13 08/06/24 07:13 08/06/24 07:13 08/06/24 07:13
Lab Results - Hematology
08/04/24 08/05/24 08/06/24
14:37 06:20 05:53
WBC 9.6 8.7 7.1
Band Neutrophils 10 H
Lab Results - Chemistry
08/04/24 08/05/24 08/06/24
14:37 06:20 05:53
BUN 34 H 25 H 21 H
Creatinine 0.7 0.7 0.6
Estimated Creat Clear 53 62
Albumin 3.2 L 2.6 L
08/04/24 08/04/24
18:55 23:00
Lactic Acid 0.7 Cancelled
Microbiology Results
08/04/24 18:56 Blood Culture - Preliminary
Blood/Venous No Growth in 24 hours- Final report to follow
08/04/24 18:56 Blood Culture - Preliminary
Blood/Venous No Growth in 24 hours- Final report to follow
08/04/24 21:23 Gram Stain - Preliminary
Abscess
08/04/24 18:55 Gram Stain - Preliminary
Pilonidal
[2024-08-06] MEDS: MAGNESIUM OXIDE 500 MG PO ×2 (09:22→20:24)
[2024-08-06] MEDS: ASPIR LOW (ENTERIC COATED) 81 MG PO (09:22)
[2024-08-06] MEDS: PROTONIX 40 MG PO (09:22)
[2024-08-06] MEDS: THERAGRAN 1 TABLET PO (09:22)
[2024-08-06] MEDS: HEPARIN 5000 UNITS SC ×2 (09:28→20:24)
[2024-08-06] MEDS: MS CONTIN (EXTENDED RELEASE) 30 MG PO ×2 (09:37→22:07)
[2024-08-06] MEDS: ProAmatine 5 MG PO (09:37)
--- NOTE | 2024-08-06 09:50 | CON.ID ---
Consultation
-
Date/Time Consultation Requested: 08/05/24 12:30
Date/Time Consultation Performed: 08/06/24 12:25
Requesting Provider: Dr Lucas
Performing Provider: Dr Farrar
Reason for Consultation: gluteal abscess
Chief Complaint / Past History
Chief Complaint
gluteal pain
History of Present Illness
Ms Mitchell is a 68 year old female with history notable for metastatic lung cancer on Tagrisso with metastases to spine/brain status post radiation to the spine, cachexia who presented here 08/04 for about 1 month of progressive sacral pain. She
has been getting wound care with visiting RN. Has difficulties with ambulation. She progressed to intermittent chills without margarita fevers recorded at home.
Since arrival here she has been afebrile, she has chronic hypotension on SURVEYOR HYDROGRAPHIC midodrine 5 mg PO BID and remains on that same dose with MAPS in the 50s-60s, HR in the 70s, wbc on arrivla 9.6 and today 7.1, hgb 7.3, plt 142, a L shift is noted, Cr 0.6,
na 135, lfts wnl, albumin 2.6, 08/[address] with IV contrast: ' LARGE 8.4 cm SOFT TISSUE ABSCESS in the RIGHT BUTTOCK. Severe acute myositis in the right gluteus aurora. Severe cellulitis throughout the buttocks and lower back OSSEOUS METASTASES
in the right side of the sacrum and proximal left femur which appear unchanged' 08/05 she was taken to the OR and underwent I&D and right gluteal abscess with expression of about 150 ccs of purulence, loculations broken up, there was no exposed bone,
a drain was placed. Blood cultures x2 are in progress no growth to date, wound cultures x3 including anaerobic cultures: polymicrobial gram stains as expected. Patient is currently on vancomycin and zoysn. She has no history of colonization with
MDRO organisms here.
Past History
Additional Past Medical History:
metastatic lung cancer on Tagrisso with metastases to spine/brain status post radiation to the spine, hypertension, hyperlipidemia,
Additional Past Surgical History:
as per hpi
Allergy History:
meloxicam Allergy (Verified 08/04/24 14:32)
Unknown
Medications Reviewed: Yes
Social History
Tobacco: Former Smoker
Alcohol: Occasional
Drug: None
Family History
Family History: Not Pertinent
Review of Systems
Review of Systems
General: Chills; Negative Fever
All systems: All other systems were reviewed and were negative
Vital Signs
Temp Pulse Resp BP Pulse Ox
98.2 F 67 15 87/49 96
08/06/24 07:13 08/06/24 07:13 08/06/24 07:13 08/06/24 09:37 08/06/24 07:13
Physical Exam
Physical Exam
Constitutional: No Acute Distress, Chronically Ill and Cachetic
Cardiovascular: Regular Rate and S1/S2; Negative Murmur or Rub
Pulmonary: Clear and Symmetric; Negative Wheezes, Rales or Rhonchi
Gastrointestinal: Soft, Non Tender, Non Distended and Normal Bowel Sounds
Skin: Warm and Dry; Negative Rash or Jaundice
Wound: Other (surgical site with scant opaque anaerobic smelling drainage; small stage II pressure wound inferior to the surgical site without probe to bone or tendon)
Lab / Diagnostic Study Results
08/06/24 05:53
08/06/24 05:53
Abs Immat Gran (auto) 0.1 10^3/uL (0-0.05) H 08/06/24 05:53
Absolute Neuts (auto) 6.2 10^3/uL (1.4-6.5) 08/06/24 05:53
Absolute Lymphs (auto) 0.3 10^3/uL (1.2-3.4) L 08/06/24 05:53
Absolute Monos (auto) 0.5 10^3/uL (0.1-0.6) 08/06/24 05:53
Absolute Basos (auto) 0.0 10^3/uL (0-0.2) 08/06/24 05:53
Total Counted 100 08/05/24 06:20
Immature Gran % 0.9 % (0-0.5) H 08/06/24 05:53
Neutrophils % 87.8 % (42.2-75.2) H 08/06/24 05:53
Lymphocytes % 3.5 % (20.5-51.1) L 08/06/24 05:53
Monocytes % 7.1 % (1.7-9.3) 08/06/24 05:53
Eosinophils % 0.3 % (0-6) 08/06/24 05:53
Basophils % 0.4 % (0-2) 08/06/24 05:53
Abs Neuts (Manual) 8.0 10^3/uL (1.4-6.5) H 08/05/24 06:20
Segmented Neutrophils 83 % (42-75) H 08/05/24 06:20
Band Neutrophils 10 % (0-3) H 08/05/24 06:20
Lymphocytes (Manual) 3 % (20-51) L 08/05/24 06:20
Eosinophils (Manual) 1 % (0-6) 08/05/24 06:20
Lactic Acid Cancelled 08/04/24 23:00
Microbiology Results
Micro:
08/05/24 16:18 Anaerobic Culture - Pending
Buttock
08/05/24 16:18 Wound Culture - Pending
Buttock Gram Stain - Pending
08/04/24 18:56 Blood Culture - Preliminary
Blood/Venous No Growth in 24 hours- Final report to follow
08/04/24 18:56 Blood Culture - Preliminary
Blood/Venous No Growth in 24 hours- Final report to follow
08/04/24 21:23 Wound Culture - Pending
Abscess Gram Stain - Preliminary
08/04/24 18:55 Wound Culture - Pending
Pilonidal Gram Stain - Preliminary
Assessment / Plan
Gluteal abscess and myositis
Metastatic lung cancer on Tagrisso with metastases to spine/brain status post radiation to the spine
Chronic hypotension on SURVEYOR HYDROGRAPHIC midodrine - continued
- s/p I&D of the abscess 08/05, without exposed bone
- wound cultures x3 are in progress, gram stains polymicrobial as expected
- drain management per surgery
- recommend regular turns in the bed and offloading
- agree with vancomycin and zosyn for present - awaiting cultures to deescalate, plan a course of oral therapy
[2024-08-06] MEDS: DILAUDID 0.5 MG IV (10:58)
--- NOTE | 2024-08-06 11:19 | W.PN.SURGUPD ---
Surgical Update
Surgical Update
Doing well continues to have some discomfort (likely from her metastatic spinal disease and chronic pain). No worsening drainage or need to change dressing overnight. No fevers or chills.
Gen: NAD, more alert
Rectal: RIGHT buttock with clean dressing, taken down with moderate malodorous drainage, non-bloody, packing removed, [place] remains in place, skin flat, less erythematous, dressing replaced with dry gauze and ABD
Patient is a 68 yo F p/w RIGHT buttock abscess in the setting of stage I sacral ulcer, malnutrition, metastatic lung ca, and recent radiation to the lumbosacral region
POD#1 s/p I&D of RIGHT buttock abscess
Recovering well overall. Follow-up cultures and tailor antibiotics as needed. Local wound care with dry gauze and ABD overlying. Change daily and as needed. Recommend daily sitz bath's. [place] to remain in place for at least 1 to 2 weeks.
Will plan for outpatient follow-up in 2 weeks to assess removal of Angelo at this time. Encouraged supplement shakes and nutrition. Patient has palliative care nurses at home, will need to coordinate outpatient wound care.
-- Local wound care: dry gauze and ABd overlying, change daily and PRN
-- Ideally daily sitz baths around time of dressing change
-- Abx: Vancomycin and Zosyn, operative cultures pending, tailor as able
-- F/u in 2 weeks for possible Angelo removal
-- Call with questions or concerns
--- NOTE | 2024-08-06 11:40 | CM ---
Reviewed the chart notes and spoke with the patient and her spouse at the bedside. Patient resides with her spouse in a two story home with no steps to enter. Patient has a rolling walker for inside house and wheelchair for outside long distances.
Patient also has a shower chair and grab bar in shower. The patient is current with [facility] and for PT. The patient confirmed her pharmacy of choice is [facility] [address] [facility]. CM continues to be available to patient/family and is monitoring
medical plan for needs at discharge.
Plan: Discharge plans will depend on the patient's progress.
--- NOTE | 2024-08-06 11:58 | W.PN.HOSP.TC ---
Today's Communication/Plan
-
Monitor vitals
see Plan
pinky per surgery
Continue antibiotics
Recheck hemoglobin later today, blood consented. Transfuse if hemoglobin less than 7
Midodrine as needed
Assessment / Plan
Assessment / Plan
General: Well Developed, Well Nourished and No Apparent Distress
HEENT: NormoCephalic, Moist mucous membranes and Atraumatic
Respiratory: Clear
Cardiac: S1/S2 and Regular Rhythm; No Murmur or Rub
GI: Soft, Non Tender, Non Distended and Normal Bowel Sounds
Musculoskeletal: No Edema
Skin: Other (right buttock wound, surround cellulitis ),+ drain
Neuro: Nonfocal/grossly intact
Right buttock abscess with surrounding myositis/cellulitis secondary to immobility possibly related to prior radiation of the spine
- Pelvic CT shows 8.4 cm soft tissue abscess in the right buttock, severe acute myositis in the right gluteus aurora, severe cellulitis throughout the buttocks and lower back, osseous metastasis in the right side of the sacrum proximal left femur
unchanged
- ER drained pus and broke up loculations but seems to be more purulent material inside
- Wound culture pending. Still has abscesses. Evaluated by surgery, s/p surgical I&D 08/05. per surgery Local wound care with dry gauze and ABD overlying. Change daily and as needed. Recommend daily sitz bath's. Pinky to remain in place for at
least 1 to 2 weeks.
- Blood cultures NGTD
- Vancomycin Zosyn; infectious disease evaluation
- General Surgery following
# Normocytic anemia; suspect acute on chronic
- From 9.6 in July
monitor; likely could be secondary to malignancy and radiation
blood consented. recheck later today and transfuse if <7. no obvious bleeding
History of metastatic lung cancer with metastasis to spine/brain status post spine radiation
- On Tagrisso, continue
- Continue Tylenol, pregabalin, morphine for pain
Essential hypertension
History of hypotension
-Blood pressure normally 90s per
- Continue midodrine prn
Hyperlipidemia
GERD
- Continue esomeprazole
Psychiatric
- Continue olanzapine
Full code
DVT prophylaxis�heparin
I spent a total of 51 minutes with the patient or on the floor. More than 50% of this time involved counseling and coordination of care.
Anticipated Discharge: > 48 hours
Subjective/Interval History
-
Date of Service: August 06, 2024
denies nausea
Objective Data
-
Labs:
Laboratory Results
08/06/24
05:53
WBC 7.1
Hgb 7.3 L
Hct 21.7 L
Plt Count 142
Sodium 135
Potassium 4.1
Chloride 102
Carbon Dioxide 26
BUN 21 H
Creatinine 0.6
Glucose 85
Calcium 8.3 L
Vital Signs:
Vital Signs
Temp Pulse Resp BP Pulse Ox
98.0 F 71 16 86/50 95
08/06/24 11:08 08/06/24 11:08 08/06/24 11:08 08/06/24 11:08 08/06/24 11:08
I&O
08/05/24 08/06/24 08/07/24
06:59 06:59 06:59
Intake Total 1839 720 / 720
Balance 1839 720 / 720
--- NOTE | 2024-08-06 13:05 | PN.CDI ---
CDI
- -
CDI:
Physician Documentation Request
Admit Date: 08/04/24 22:28
Dear Doctor Lance,
Patient admitted with right buttocks abscess.
08/06 Nutrition note, 'Patient meets AND and ASPEN criteria for severe calorie protein malnutrition of chronic disease due to severe muscle loss around her clavicle and severe fat loss from her orbital area.'
Based on your assessment, please provide in your note the diagnosis associated with patient's nutritional status:
Severe calorie protein malnutrition
Other (please specify)
Sumpter Criteria ([facility]ist 2017)
2 or more criteria must be present for either
non severe or severe malnutrition
Note that the criteria differs related to the
presence of an acute or chronic illness
Chronic Illness
Energy Intake Non Severe: <75% for >1 month
Severe: <75% for >1 month
Weight Loss Non Severe: 5% over 1 month
7.5% over 3 months
10% over 6 months
20% over 1 year
Severe: >5% over 1 month
>7.5% over 3 months
>10% over 6 months
>20% over 1 year
Body Fat Non Severe: Mild Loss
Severe: Severe Loss
Muscle Mass Non Severe: Mild Loss
Severe: Severe Loss
Fluid Accumulation Non Severe: Mild Accumulation
Severe: Moderate to severe
accumulation
Reduced T[employer] Bladder Maker Strength Non Severe: N/A
Severe: Measurably reduced
Use of terms such as suspected, likely, concern for, or probable (associated with a specific diagnosis that is being evaluated, monitored, or treated as if it exists) are acceptable and can be coded in the inpatient setting, when documented at the
time of discharge.
Thank you,
Maribel CHRISTENSEN,RN,CCDS
CDI Specialist
Available via tiger text
Please use your independent medical judgment in providing your response.
[2024-08-06] MEDS: NON-FORMULARY ITEM 80 MG PO (20:28)
[2024-08-06] MEDS: ZYPREXA 2.5 MG PO (22:07)
[2024-08-06] MEDS: LYRICA 50 MG PO (22:07)
[2024-08-06 22:57] LABS: Hematocrit 21.3 % (37.0-47.0); Hemoglobin 7.2 g/dL (12.0-16.0)
[2024-08-06 23:18] LABS: Vancomycin Peak 17.2 ug/ml (18-26)
[2024-08-07] VITALS (9 sets, daily range): BP systolic 84–123; BP diastolic 50–67
[2024-08-07] MEDS: ZOSYN 50 IV ×4 (03:31→21:19)
[2024-08-07 05:55] LABS: Hematocrit 21.5 % (37.0-47.0); Hemoglobin 7.2 g/dL (12.0-16.0); Mean Corp Hgb Conc. 33.5 g/dL (33.0-37.0); Mean Corpuscular Volume 95.6 fL (81.0-99.0); Mean Platelet Volume 10.4 fL (7.4-10.4); Platelet Count 150 10^3/uL (130-400); Red Blood Cell Count 2.25 10^6/uL (4.20-5.40); Red Cell Dist. Width 14.6 % (11.5-14.5); White Blood Cell Count 3.9 10^3/uL (4.8-10.8)
[2024-08-07] MEDS: VANCOCIN HCL 500 MG 100 IV ×2 (05:58→17:12)
[2024-08-07 05:59] LABS: Vancomycin Trough 13.9 ug/ml (5-20)
[2024-08-07 06:05] LABS: Blood Urea Nitrogen 14 mg/dl (7-17); Calcium 8.1 mg/dl (8.4-10.2); Carbon Dioxide 27 mmol/L (22-30); Chloride 107 mmol/L (98-107); Estimated Creatinine Clearance 62 ml/min; Glucose 93 mg/dl (70-99); Sodium 138 mmol/L (135-145); eGFR > 60.00
[2024-08-07 06:11] LABS: % Basophils 0.8 % (0-2); % Immature Granulocytes 1.8 % (0-0.5); % Neutrophils 74.4 % (42.2-75.2); Absolute Immature Granulocytes 0.1 10^3/uL (0-0.05); Absolute Lymphocytes 0.4 10^3/uL (1.2-3.4); Absolute Monocytes 0.5 10^3/uL (0.1-0.6); Absolute Neutrophils 2.9 10^3/uL (1.4-6.5); Nucleated Red Blood Cells % 0 %
[2024-08-07] MEDS: PROTONIX 40 MG PO (08:30)
[2024-08-07] MEDS: ASPIR LOW (ENTERIC COATED) 81 MG PO (08:30)
[2024-08-07] MEDS: MAGNESIUM OXIDE 500 MG PO (08:30)
[2024-08-07] MEDS: THERAGRAN 1 TABLET PO (08:30)
[2024-08-07] MEDS: HEPARIN 5000 UNITS SC ×2 (08:31→21:18)
[2024-08-07] MEDS: MS CONTIN (EXTENDED RELEASE) 30 MG PO ×2 (09:47→21:19)
[2024-08-07] MEDS: ProAmatine 5 MG PO (11:06)
--- NOTE | 2024-08-07 11:22 | W.PN.HOSP.TC ---
Today's Communication/Plan
-
Monitor vital signs see plan
Discussed with patient and , transfuse 1 unit PRBC today
Continue with empiric antibiotics
Follow cultures
Midodrine as needed
PT
Assessment / Plan
Assessment / Plan
General: Well Developed, Well Nourished and No Apparent Distress
HEENT: NormoCephalic, Moist mucous membranes and Atraumatic
Respiratory: Clear
Cardiac: S1/S2 and Regular Rhythm; No Murmur or Rub
GI: Soft, Non Tender, Non Distended and Normal Bowel Sounds
Musculoskeletal: No Edema
Skin: Other (right buttock wound, surround cellulitis ),+ drain
Neuro: Nonfocal/grossly intact
Right buttock abscess with surrounding myositis/cellulitis secondary to immobility possibly related to prior radiation of the spine
- Pelvic CT shows 8.4 cm soft tissue abscess in the right buttock, severe acute myositis in the right gluteus aurora, severe cellulitis throughout the buttocks and lower back, osseous metastasis in the right side of the sacrum proximal left femur
unchanged
- ER drained pus and broke up loculations but seems to be more purulent material inside
- Wound culture pending. Evaluated by surgery, s/p surgical I&D 08/05. per surgery Local wound care with dry gauze and ABD overlying. Change daily and as needed. Recommend daily sitz bath's. [place] to remain in place for at least 1 to 2 weeks.
- Blood cultures NGTD
- Vancomycin Zosyn; infectious disease following
- General Surgery following
# Normocytic anemia; suspect acute on chronic
- From 9.6 in July
monitor; likely could be secondary to malignancy and radiation
blood consented. hgb 7.2; discussed with patient and , transfuse 1 unit PRBC and monitor. currently symptomatic with fatigue and low BP
History of metastatic lung cancer with metastasis to spine/brain status post spine radiation
- On Tagrisso, continue
- Continue Tylenol, pregabalin, morphine for pain
Essential hypertension
History of hypotension
-Blood pressure normally 90s per
- Continue midodrine prn
Severe calorie protein malnutrition
Hyperlipidemia
GERD
- Continue esomeprazole
Psychiatric
- Continue olanzapine
Full code
DVT prophylaxis�heparin
I spent a total of 52 minutes with the patient or on the floor. More than 50% of this time involved counseling and coordination of care.
Anticipated Discharge: 24 - 48 hours
Subjective/Interval History
-
Date of Service: August 07, 2024
fatigue
Objective Data
-
Labs:
Laboratory Results
08/07/24
05:24
WBC 3.9 L
Hgb 7.2 L
Hct 21.5 L
Plt Count 150
Sodium 138
Potassium 4.0
Chloride 107
Carbon Dioxide 27
BUN 14
Creatinine 0.6
Glucose 93
Calcium 8.1 L
Vital Signs:
Vital Signs
Temp Pulse Resp BP Pulse Ox
98.4 F 63 16 84/50 98
08/07/24 11:03 08/07/24 11:06 08/07/24 11:03 08/07/24 11:06 08/07/24 11:03
I&O
08/06/24 08/07/24 08/08/24
06:59 06:59 06:59
Intake Total 1839 266 / 2660
Balance 1839 / 2659
--- NOTE | 2024-08-07 12:52 | CM ---
Addendum entered by Jennifer Fernandez RN 08/07/24 15:27:
IMM reviewed.
Original Note:
Reviewed the chart notes and spoke with the patient and her spouse at the bedside. CM continues to be available to patient/family and is monitoring medical plan for needs at discharge.
Plan: Discharge to home with resumption of [facility]. Patient's spouse will provide transportation home.
[facility]
--- NOTE | 2024-08-07 13:14 | PHA.VAN.FU ---
Vancomycin Assessment / Plan
- Assessment
Renal Function: Stable
WBC's are: WNL
In the past 24 hrs, patient has been: Afebrile
Concomitant Antimicrobials: piperacillin/tazobactam
- Assessment - Therapeutic Drug Monitoring
Peak level was drawn: More than 3 hours after previous dose (peak drawn aprox. 5 hours after end of infusion)
Trough Drawn: Appropriately (13.9)
Calculated AUC (mcg*h/mL): 405
Calculated ke: 0.0317
Calculated half life (H): 21.9
Calculated Vd (L): 77.92
Calculated Vanc CL (ml/min): 41.19
- Dosing Plan
Continue: vancomycin 500 mg q12H
- Monitoring Plan
No level(s) ordered at this time: consider levels in next few days
- Follow Up
Pharmacy will continue to follow.
Vancomycin Follow UP
- -
Patient Age: 68
Patient Sex: Female
Vancomycin Day #: 3
Indication: Skin And Soft Tissue
Requesting Provider: Dr. Jo
Pertinent Antimicrobial Allergies:
no pertinent antibiotic allergies
Height / Weight:
Height 5 ft 4 in
Actual Weight 42.5 kg
IBW in k.7
Pertinent Past Medical History: BMI ~16.1, metastatic lung cancer, immobility
- Vital Signs / Lab Results
Temp Pulse Resp BP Pulse Ox
98.4 F 64 16 97/58 98
08/07/24 12:44 08/07/24 12:44 08/07/24 12:44 08/07/24 12:44 08/07/24 11:03
Lab Results - Hematology
08/04/24 08/05/24 08/06/24
14:37 06:20 05:53
WBC 9.6 8.7 7.1
Band Neutrophils 10 H
08/07/24
05:24
WBC 3.9 L
Band Neutrophils
Lab Results - Chemistry
08/04/24 08/05/24 08/06/24
14:37 06:20 05:53
BUN 34 H 25 H 21 H
Creatinine 0.7 0.7 0.6
Estimated Creat Clear 53 62
Albumin 3.2 L 2.6 L
08/07/24
05:24
BUN 14
Creatinine 0.6
Estimated Creat Clear 62
Albumin
08/04/24 08/04/24
18:55 23:00
Lactic Acid 0.7 Cancelled
Microbiology Results
08/04/24 18:55 Wound Culture - Preliminary
Pilonidal Gram Stain - Preliminary
08/04/24 18:56 Blood Culture - Preliminary
Blood/Venous No Growth in 48 hours- Final report to follow
08/04/24 18:56 Blood Culture - Preliminary
Blood/Venous No Growth in 48 hours- Final report to follow
08/04/24 21:23 Wound Culture - Preliminary
Abscess Gram Stain - Preliminary
08/05/24 16:18 Gram Stain - Preliminary
Buttock
Therapeutic Drug Monitoring
Vancomycin Peak 17.2 ug/ml (18-26) L 08/06/24 22:41
Vancomycin Trough 13.9 ug/ml (5-20) 08/07/24 05:24
--- NOTE | 2024-08-07 15:38 | W.PN.ID1 ---
Date of Service
Date of Service: August 07, 2024
Today's Communication
- mag ox can cause diarrhea - held; do not recommend assessment for C difficile at this time given lack of abdominal pain, no blood in the stool, stable patient
- agree with vancomycin and zosyn for present - awaiting cultures to deescalate, plan a course of oral therapy
Assessment / Plan
Gluteal abscess and myositis
Metastatic lung cancer on Tagrisso with metastases to spine/brain status post radiation to the spine
Chronic hypotension on [employer] midodrine - continued
- s/p I&D of the abscess /, without exposed bone
- wound cultures x3 are in progress, gram stains polymicrobial as expected
- drain management per surgery
- recommend regular turns in the bed and offloading
- mag ox can cause diarrhea - held; do not recommend assessment for C difficile at this time given lack of abdominal pain, no blood in the stool, stable patient
- agree with vancomycin and zosyn for present - awaiting cultures to deescalate, plan a course of oral therapy
Chief Complaint
-: Other (gluteal abscess)
Subjective / Review of Systems
afebrile
bp mildly hypotensive she is on chronic midodrine
had diarrhea overnight - no tenderness
no complaints
Vital Signs / Physical Exam
Vital Signs
Vital Signs
Temp Pulse Resp BP Pulse Ox
98.2 F 62 16 108/63 97
08/07/24 15:05 08/07/24 15:05 08/07/24 15:05 08/07/24 15:05 08/07/24 15:05
Physical Exam
Constitutional: No Acute Distress and Chronically Ill
Cardiovascular: Regular Rate and S1/S2; Negative Murmur or Rub
Pulmonary: Clear and Symmetric; Negative Wheezes or Rales
Gastrointestinal: Soft, Non Tender, Non Distended and Normal Bowel Sounds
Skin: Warm and Dry; Negative Rash or Jaundice
Objective Data
Lab Data
Lab Results
08/07/24 05:24
08/07/24 05:24
Estimated Creat Clear 62 ml/min 08/07/24 05:24
Lactic Acid Cancelled 08/04/24 23:00
Total Bilirubin 0.5 mg/dl (0.2-1.3) 08/05/24 06:20
AST 16 U/L (14-36) 08/05/24 06:20
ALT 12 U/L (0-35) 08/05/24 06:20
Alkaline Phosphatase 69 U/L (38-126) 08/05/24 06:20
Most recent labs reviewed.
Micro Results:
08/04/24 18:55 Wound Culture - Preliminary
Pilonidal Gram Stain - Preliminary
08/04/24 21:23 Wound Culture - Preliminary
Abscess Gram Stain - Preliminary
08/05/24 16:18 Wound Culture - Preliminary
Buttock Gram Stain - Preliminary
08/05/24 16:18 Anaerobic Culture - Preliminary
Buttock Culture pending. Anaerobic cultures are examined after 3
days incubation. Additional information to follow.
08/04/24 18:56 Blood Culture - Preliminary
Blood/Venous No Growth in 48 hours- Final report to follow
08/04/24 18:56 Blood Culture - Preliminary
Blood/Venous No Growth in 48 hours- Final report to follow
[2024-08-07] MEDS: NON-FORMULARY ITEM 80 MG PO (21:19)
[2024-08-07] MEDS: ZYPREXA 2.5 MG PO (21:19)
[2024-08-07] MEDS: LYRICA 50 MG PO (21:19)
[2024-08-08] VITALS (7 sets, daily range): BP systolic 93–125; BP diastolic 59–79; PULSE 64; O2SAT 98
[2024-08-08] MEDS: ZOSYN 50 IV ×4 (03:03→21:31)
[2024-08-08] MEDS: VANCOCIN HCL 500 MG 100 IV ×2 (05:44→17:42)
[2024-08-08 06:59] LABS: Blood Urea Nitrogen 11 mg/dl (7-17); Calcium 8.2 mg/dl (8.4-10.2); Carbon Dioxide 28 mmol/L (22-30); Chloride 104 mmol/L (98-107); Estimated Creatinine Clearance 62 ml/min; Glucose 92 mg/dl (70-99); Hemoglobin 8.9 g/dL (12.0-16.0); Mean Corp Hgb Conc. 34.2 g/dL (33.0-37.0); Mean Corpuscular Hgb 32.1 pg (27.0-31.0); Mean Corpuscular Volume 93.9 fL (81.0-99.0); Mean Platelet Volume 10.1 fL (7.4-10.4); Platelet Count 147 10^3/uL (130-400); Potassium 3.8 mmol/L (3.5-5.1); Red Blood Cell Count 2.77 10^6/uL (4.20-5.40); Red Cell Dist. Width 14.4 % (11.5-14.5); Sodium 137 mmol/L (135-145); White Blood Cell Count 3.7 10^3/uL (4.8-10.8); eGFR > 60.00
[2024-08-08 08:40] LABS: % Basophils 0.5 % (0-2); % Eosinophils 1.3 % (0-6); % Immature Granulocytes 2.7 % (0-0.5); % Lymphocytes 11.3 % (20.5-51.1); % Monocytes 11.6 % (1.7-9.3); % Neutrophils 72.6 % (42.2-75.2); Absolute Eosinophils 0.1 10^3/uL (0-0.7); Absolute Immature Granulocytes 0.1 10^3/uL (0-0.05); Absolute Lymphocytes 0.4 10^3/uL (1.2-3.4); Absolute Monocytes 0.4 10^3/uL (0.1-0.6); Absolute Neutrophils 2.7 10^3/uL (1.4-6.5); Nucleated Red Blood Cells % 0 %
--- NOTE | 2024-08-08 08:46 | CM ---
Reviewed the chart notes. CM continues to be available to patient/family and is monitoring medical plan for needs at discharge.
Plan: Discharge to home with resumption of [facility]. Patient's spouse will provide transportation home.
[facility]
--- NOTE | 2024-08-08 09:16 | PHA.VAN.FU ---
Vancomycin Assessment / Plan
- Assessment
Renal Function: Stable
WBC's are: Trending Down
In the past 24 hrs, patient has been: Afebrile
Concomitant Antimicrobials: piperacillin/tazobactam
- Assessment - Therapeutic Drug Monitoring
Extrapolated Cmin (mcg/mL): trough was 13.9 on 08/07/24 after 4 maint doses
- Dosing Plan
Continue: vancomycin 500 mg q12h
- Monitoring Plan
No level(s) ordered at this time: may consider levels
Level(s) appropriate: Recheck trough at minimum of weekly intervals, Repeat sooner for changes in renal function or clinical status
- Follow Up
Pharmacy will continue to follow.
Vancomycin Follow UP
- -
Patient Age: 68
Patient Sex: Female
Vancomycin Day #: 4
Indication: Skin And Soft Tissue
Requesting Provider: Dr. Jo
Pertinent Antimicrobial Allergies:
no pertinent antibiotic allergies
Height / Weight:
Height 5 ft 4 in
Actual Weight 42.5 kg
IBW in k.7
Pertinent Past Medical History: BMI ~16.1, metastatic lung cancer, immobility
- Vital Signs / Lab Results
Temp Pulse Resp BP Pulse Ox
97.9 F 81 16 114/74 96
08/08/24 07:30 08/08/24 07:30 08/08/24 07:30 08/08/24 07:30 08/08/24 07:30
Lab Results - Hematology
08/06/24 08/07/24 08/08/24
05:53 05:24 06:03
WBC 7.1 3.9 L 3.7 L
Lab Results - Chemistry
08/06/24 08/07/24 08/08/24
05:53 05:24 06:03
BUN 21 H 14 11
Creatinine 0.6 0.6 0.6
Estimated Creat Clear 62 62 62
Microbiology Results
08/04/24 18:56 Blood Culture - Preliminary
Blood/Venous No Growth in 72 hours- Final report to follow
08/04/24 18:56 Blood Culture - Preliminary
Blood/Venous No Growth in 72 hours- Final report to follow
08/04/24 18:55 Wound Culture - Preliminary
Pilonidal Gram Stain - Preliminary
08/04/24 21:23 Wound Culture - Preliminary
Abscess Gram Stain - Preliminary
08/05/24 16:18 Wound Culture - Preliminary
Buttock Gram Stain - Preliminary
08/05/24 16:18 Anaerobic Culture - Preliminary
Buttock Culture pending. Anaerobic cultures are examined after 3
days incubation. Additional information to follow.
Therapeutic Drug Monitoring
Vancomycin Peak 17.2 ug/ml (18-26) L 08/06/24 22:41
Vancomycin Trough 13.9 ug/ml (5-20) 08/07/24 05:24
[2024-08-08] MEDS: HEPARIN SC (10:50)
[2024-08-08] MEDS: ASPIR LOW (ENTERIC COATED) 81 MG PO (10:51)
[2024-08-08] MEDS: THERAGRAN 1 TABLET PO (10:51)
[2024-08-08] MEDS: PROTONIX 40 MG PO (10:51)
[2024-08-08] MEDS: MS CONTIN (EXTENDED RELEASE) 30 MG PO ×2 (10:55→22:51)
[2024-08-08] MEDS: HEPARIN 5000 UNITS SC ×2 (11:03→19:52)
--- NOTE | 2024-08-08 12:49 | W.PN.HOSP.TC ---
Today's Communication/Plan
-
Monitor vital signs see plan
Monitor hemoglobin
Continue with antibiotics
PT
Discussed with spouse
Assessment / Plan
Assessment / Plan
General: Well Developed, Well Nourished and No Apparent Distress
HEENT: NormoCephalic, Moist mucous membranes and Atraumatic
Respiratory: Clear
Cardiac: S1/S2 and Regular Rhythm; No Murmur or Rub
GI: Soft, Non Tender, Non Distended and Normal Bowel Sounds
Musculoskeletal: No Edema
Skin: Other (right buttock wound, surround cellulitis ),+ drain
Neuro: Nonfocal/grossly intact
Right buttock abscess with surrounding myositis/cellulitis secondary to immobility possibly related to prior radiation of the spine
- Pelvic CT shows 8.4 cm soft tissue abscess in the right buttock, severe acute myositis in the right gluteus aurora, severe cellulitis throughout the buttocks and lower back, osseous metastasis in the right side of the sacrum proximal left femur
unchanged
- ER drained pus and broke up loculations but seems to be more purulent material inside
- Wound culture pending. Evaluated by surgery, s/p surgical I&D 08/05. per surgery Local wound care with dry gauze and ABD overlying. Change daily and as needed. Recommend daily sitz bath's. [place] to remain in place for at least 1 to 2 weeks.
- Blood cultures NGTD
- Vancomycin Zosyn; infectious disease following
- General Surgery following
# Normocytic anemia; suspect acute on chronic
- From 9.6 in July
monitor; likely could be secondary to malignancy and radiation
blood consented. hgb 7.2 on 08/08; discussed with patient and , transfused 1 unit PRBC and monitor. symptomatic with fatigue and low BP. now improving
History of metastatic lung cancer with metastasis to spine/brain status post spine radiation
- On Tagrisso, continue
- Continue Tylenol, pregabalin, morphine for pain
Essential hypertension
History of hypotension
-Blood pressure normally 90s per
- Continue midodrine prn
Severe calorie protein malnutrition
Hyperlipidemia
GERD
- Continue esomeprazole
Psychiatric
- Continue olanzapine
Full code
DVT prophylaxis�heparin
Anticipated Discharge: 24 - 48 hours
Subjective/Interval History
-
Date of Service: August 08, 2024
has some pain
Objective Data
-
Labs:
Laboratory Results
08/08/24
06:03
WBC 3.7 L
Hgb 8.9 L D
Hct 26.0 L
Plt Count 147
Sodium 137
Potassium 3.8
Chloride 104
Carbon Dioxide 28
BUN 11
Creatinine 0.6
Glucose 92
Calcium 8.2 L
Vital Signs:
Vital Signs
Temp Pulse Resp BP Pulse Ox
98.2 F 77 16 113/79 96
08/08/24 11:56 08/08/24 11:56 08/08/24 11:56 08/08/24 11:56 08/08/24 11:56
I&O
08/07/24 08/08/24 08/09/24
06:59 06:59 06:59
Intake Total 2660 / 2660 1180 / 1180
Balance 2660 / 2660 1180 / 1180
--- NOTE | 2024-08-08 17:17 | W.PN.ID1 ---
Date of Service
Date of Service: August 08, 2024
Today's Communication
- on dc can transition to augmentin to complete a 10 day course 08/04-08/13
- I will follow up sensi on the CONS - requested from the lab
- stable for dc from ID perspective
Assessment / Plan
Gluteal abscess and myositis
Metastatic lung cancer on Tagrisso with metastases to spine/brain status post radiation to the spine
Chronic hypotension on [employer] midodrine - continued
- s/p I&D of the abscess 08/05, without exposed bone
- continue vanc/zosyn while inpatient
- on dc can transition to augmentin to complete a 10 day course 08/04-08/13
- I will follow up sensi on the CONS - requested from the lab
- stable for dc from ID perspective
Chief Complaint
-: Other (gluteal abscess)
Subjective / Review of Systems
afebrile
bp stable
tolerating current therapies
Vital Signs / Physical Exam
Vital Signs
Vital Signs
Temp Pulse Resp BP Pulse Ox
98.5 F 68 16 108/65 96
08/08/24 15:05 08/08/24 15:05 08/08/24 15:05 08/08/24 15:05 08/08/24 15:05
Physical Exam
Constitutional: No Acute Distress
Cardiovascular: Regular Rate and S1/S2; Negative Murmur or Rub
Pulmonary: Clear and Symmetric; Negative Wheezes or Rales
Gastrointestinal: Soft, Non Tender, Non Distended and Normal Bowel Sounds
Skin: Warm and Dry; Negative Rash or Jaundice
Objective Data
Lab Data
Lab Results
08/08/24 06:03
08/08/24 06:03
Estimated Creat Clear 62 ml/min 08/08/24 06:03
Lactic Acid Cancelled 08/04/24 23:00
Total Bilirubin 0.5 mg/dl (0.2-1.3) 08/05/24 06:20
AST 16 U/L (14-36) 08/05/24 06:20
ALT 12 U/L (0-35) 08/05/24 06:20
Alkaline Phosphatase 69 U/L (38-126) 08/05/24 06:20
Most recent labs reviewed.
Micro Results:
08/04/24 18:55 Wound Culture - Preliminary
Pilonidal Enterococcus species
Viridans Streptococcus Group
Diptheroids
Gram Stain - Preliminary
08/05/24 16:18 Anaerobic Culture - Preliminary
Buttock Culture pending. Anaerobic cultures are examined after 3
days incubation. Additional information to follow.
08/05/24 16:18 Wound Culture - Preliminary
Buttock Viridans Streptococcus Group
Coagulase neg. staphylococcus
Gram Stain - Preliminary
08/04/24 21:23 Wound Culture - Final
Abscess Viridans Streptococcus Group
Gram Stain - Final
08/04/24 18:56 Blood Culture - Preliminary
Blood/Venous No Growth in 72 hours- Final report to follow
08/04/24 18:56 Blood Culture - Preliminary
Blood/Venous No Growth in 72 hours- Final report to follow
[2024-08-08] MEDS: TORADOL 10 MG IV (19:53)
[2024-08-08] MEDS: LYRICA 50 MG PO (21:30)
[2024-08-08] MEDS: NON-FORMULARY ITEM 80 MG PO (21:30)
[2024-08-08] MEDS: ZYPREXA 2.5 MG PO (21:30)
[2024-08-09 02:57] VITALS: BP 95/56
[2024-08-09] MEDS: ZOSYN 50 IV ×2 (04:30→09:20)
[2024-08-09] MEDS: VANCOCIN HCL 500 MG 100 IV (05:59)
[2024-08-09 06:16] LABS: % Basophils 0.7 % (0-2); % Eosinophils 1.3 % (0-6); % Immature Granulocytes 3.9 % (0-0.5); % Lymphocytes 15.1 % (20.5-51.1); % Monocytes 12.5 % (1.7-9.3); % Neutrophils 66.5 % (42.2-75.2); Absolute Immature Granulocytes 0.1 10^3/uL (0-0.05); Absolute Lymphocytes 0.5 10^3/uL (1.2-3.4); Absolute Monocytes 0.4 10^3/uL (0.1-0.6); Hemoglobin 9.1 g/dL (12.0-16.0); Mean Corp Hgb Conc. 33.7 g/dL (33.0-37.0); Mean Corpuscular Hgb 32.2 pg (27.0-31.0); Mean Corpuscular Volume 95.4 fL (81.0-99.0); Mean Platelet Volume 10.1 fL (7.4-10.4); Nucleated Red Blood Cells % 0 %; Platelet Count 154 10^3/uL (130-400); Red Blood Cell Count 2.83 10^6/uL (4.20-5.40); Red Cell Dist. Width 14.3 % (11.5-14.5); White Blood Cell Count 3.1 10^3/uL (4.8-10.8)
[2024-08-09 06:42] LABS: Blood Urea Nitrogen 11 mg/dl (7-17); Calcium 8.5 mg/dl (8.4-10.2); Carbon Dioxide 31 mmol/L (22-30); Chloride 105 mmol/L (98-107); Estimated Creatinine Clearance 53 ml/min; Glucose 85 mg/dl (70-99); Potassium 4.2 mmol/L (3.5-5.1); Sodium 139 mmol/L (135-145); eGFR > 60.00
--- NOTE | 2024-08-09 07:13 | PTCARENOTE ---
pt had x2 4x4 changes with quarter size bleeding on each drsging.
[2024-08-09 07:25] VITALS: BP 102/60
--- NOTE | 2024-08-09 08:28 | PHA.VAN.FU ---
Vancomycin Assessment / Plan
- Assessment
Renal Function: Stable
WBC's are: Stable
In the past 24 hrs, patient has been: Afebrile
Concomitant Antimicrobials: PIPERACILLIN/TAZOBACTAM
- Dosing Plan
Continue: VANCO 500MG Q12H
- Monitoring Plan
Level(s) appropriate: Recheck trough at minimum of weekly intervals, Repeat sooner for changes in renal function or clinical status
- Follow Up
Pharmacy will continue to follow.
Vancomycin Follow UP
- -
Patient Age: 68
Patient Sex: Female
Vancomycin Day #: 5
Indication: Skin And Soft Tissue
Requesting Provider: Dr. Jo
Pertinent Antimicrobial Allergies:
no pertinent antibiotic allergies
Height / Weight:
Height 5 ft 4 in
Actual Weight 42.5 kg
IBW in k.7
Pertinent Past Medical History: BMI ~16.1, metastatic lung cancer, immobility
- Vital Signs / Lab Results
Temp Pulse Resp BP Pulse Ox
98.1 F 61 16 102/60 97
08/09/24 07:25 08/09/24 07:25 08/09/24 07:25 08/09/24 07:25 08/09/24 07:25
Lab Results - Hematology
08/07/24 08/08/24 08/09/24
05:24 06:03 05:36
WBC 3.9 L 3.7 L 3.1 L
Lab Results - Chemistry
08/07/24 08/08/24 08/09/24
05:24 06:03 05:36
BUN 14 11 11
Creatinine 0.6 0.6 0.7
Estimated Creat Clear 62 62 53
Microbiology Results
08/04/24 18:56 Blood Culture - Preliminary
Blood/Venous No Growth in 4 days- Final report to follow
08/04/24 18:56 Blood Culture - Preliminary
Blood/Venous No Growth in 4 days- Final report to follow
08/04/24 18:55 Wound Culture - Preliminary
Pilonidal Enterococcus species
Viridans Streptococcus Group
Diptheroids
Gram Stain - Preliminary
08/05/24 16:18 Anaerobic Culture - Preliminary
Buttock Culture pending. Anaerobic cultures are examined after 3
days incubation. Additional information to follow.
08/05/24 16:18 Wound Culture - Preliminary
Buttock Viridans Streptococcus Group
Coagulase neg. staphylococcus
Gram Stain - Preliminary
08/04/24 21:23 Wound Culture - Final
Abscess Viridans Streptococcus Group
Gram Stain - Final
Therapeutic Drug Monitoring
Vancomycin Peak 17.2 ug/ml (18-26) L 08/06/24 22:41
Vancomycin Trough 13.9 ug/ml (5-20) 08/07/24 05:24
[2024-08-09] MEDS: THERAGRAN 1 TABLET PO (09:20)
[2024-08-09] MEDS: ASPIR LOW (ENTERIC COATED) 81 MG PO (09:20)
[2024-08-09] MEDS: HEPARIN SC ×2 (09:20→09:27)
[2024-08-09] MEDS: PROTONIX 40 MG PO (09:20)
[2024-08-09] MEDS: MS CONTIN (EXTENDED RELEASE) 30 MG PO (09:35)
--- NOTE | 2024-08-09 11:28 | W.PN.HOSP.TC ---
Today's Communication/Plan
-
Monitor vital signs
see plan
Discharge today on p.o. Augmentin
Patient will follow-up with surgery outpatient
Discussed with spouse
Time of discharge 38 minutes
Assessment / Plan
Assessment / Plan
General: Well Developed, Well Nourished and No Apparent Distress
HEENT: NormoCephalic, Moist mucous membranes and Atraumatic
Respiratory: Clear
Cardiac: S1/S2 and Regular Rhythm; No Murmur or Rub
GI: Soft, Non Tender, Non Distended and Normal Bowel Sounds
Musculoskeletal: No Edema
Skin: Other (right buttock wound, surround cellulitis ),+ drain
Neuro: Nonfocal/grossly intact
Right buttock abscess with surrounding myositis/cellulitis secondary to immobility possibly related to prior radiation of the spine
- Pelvic CT shows 8.4 cm soft tissue abscess in the right buttock, severe acute myositis in the right gluteus aurora, severe cellulitis throughout the buttocks and lower back, osseous metastasis in the right side of the sacrum proximal left femur
unchanged
- ER drained pus and broke up loculations but seems to be more purulent material inside
- Wound culture pending. Evaluated by surgery, s/p surgical I&D 08/05. per surgery Local wound care with dry gauze and ABD overlying. Change daily and as needed. Recommend daily sitz bath's. [place] to remain in place for at least 1 to 2 weeks.
- Blood cultures NGTD
- Vancomycin Zosyn; infectious disease following. Discharged on p.o. Augmentin and infectious disease will follow culture outpatient. Wound culture so far with no strep, coag negative staph
- General Surgery following
# Normocytic anemia; suspect acute on chronic
- From 9.6 in July
monitor; likely could be secondary to malignancy and radiation
blood consented. hgb 7.2 on 08/08; discussed with patient and , transfused 1 unit PRBC and monitor. Hemoglobin now 9.1. symptomatic with fatigue and low BP. now improving
History of metastatic lung cancer with metastasis to spine/brain status post spine radiation
- On Tagrisso, continue
- Continue Tylenol, pregabalin, morphine for pain
Essential hypertension
History of hypotension
-Blood pressure normally 90s per
- Continue midodrine prn
Severe calorie protein malnutrition
Hyperlipidemia
GERD
- Continue esomeprazole
Psychiatric
- Continue olanzapine
Full code
DVT prophylaxis�heparin
Anticipated Discharge: Today
Subjective/Interval History
-
Date of Service: August 09, 2024
Denies nausea
Objective Data
-
Labs:
Laboratory Results
08/09/24
05:36
WBC 3.1 L
Hgb 9.1 L
Hct 27.0 L
Plt Count 154
Sodium 139
Potassium 4.2
Chloride 105
Carbon Dioxide 31 H
BUN 11
Creatinine 0.7
Glucose 85
Calcium 8.5
Vital Signs:
Vital Signs
Temp Pulse Resp BP Pulse Ox
98.1 F 61 16 102/60 97
08/09/24 07:25 08/09/24 07:25 08/09/24 07:25 08/09/24 07:25 08/09/24 07:25
I&O
08/08/24 08/09/24 08/10/24
06:59 06:59 06:59
Intake Total 1180 / 1180 800 / 800
Balance 1180 / 1180 800 / 800
--- NOTE | 2024-08-09 11:36 | W.DCSUMMARY ---
Discharge Summary
Discharge Data
Date of Admission: 08/04/24
Date of Discharge: 08/09/24
-
Pending Results: No
Hospital Course
68-year-old female with past medical history of metastatic lung cancer with metastases to spine/brain with ongoing radiation, essential hypertension, history of hypertension, hyperlipidemia, GERD, anxiety came to the hospital with right gluteal
abscess with surrounding myositis/cellulitis. Patient was seen by surgery who took the patient to the OR for I&D. Patient was also seen by infectious disease. Culture from the abscess was growing viridans strep and coag negative staph. Final
cultures were still pending prior to the discharge however infectious disease wanted to follow this outpatient and will change the antibiotics if needed. Patient was initially put on IV antibiotics which were later transitioned to p.o. Augmentin
per infectious disease recommendation. Surgery also recommended patient to follow-up with them outpatient and wanted to keep the Oral drain on discharge. On this hospitalization patient also had anemia which was likely thought was secondary to
possible malignancy and radiation. Patient required blood transfusion on this hospitalization which improved her hemoglobin and symptoms. Once patient symptoms continue to improve, she was then discharged home with instructions to follow-up with
all her physicians outpatient.
Discharge Plan
-
Patient Disposition: Home with Home Care
Discharge Diagnosis/Procedures: Gluteal abscess and myositis s/p Incision and drainage of RIGHT buttock abscess
Anemia
Diet: Regular
Activity: As tolerated
Additional Activity: Minimize pressure on the coccygeal and gluteal area.
Driving Restrictions: Not until seen by your Dr
Bathing Restrictions: Daily sitz baths
Blood Work: CBC next week with primary care provider
Wound Care: Cover RIGHT buttock with gauze/ABD and tape. Change daily and as needed. Daily sitz baths. Minimize pressure on the area. Drain will be removed by your surgeon during your follow up appointment.
Activity Restrictions/Additional Instructions:
Call for fevers (>100.5), worsening pain, issues with wound care
Instructions: How to take a sitz bath
Referrals:
Sharmin Mattson MD [Family Provider] - in less than 1 week
Roddy Smith MD [Active] - in two weeks
Sumi Farrar MD [Active] -
Prescriptions:
New
amoxicillin-pot clavulanate 875-125 mg tablet
1 tab PO BID Qty: 10 0RF
Continued
esomeprazole magnesium [Nexium] 20 mg Capsule,Delayed Release(Dr/Ec)
20 mg PO DAILY
acetaminophen [Tylenol] 325 mg Tablet
650 mg PO Q6HPRN PRN (Reason: headaches)
midodrine 5 mg Tablet
5 mg PO BIDPRN PRN (Reason: low blood pressure)
therapeutic multivitamin Tablet
1 tab PO DAILY
morphine 30 mg Tablet Extended Release
30 mg PO Q12H
olanzapine 2.5 mg Tablet
2.5 mg PO HS
aspirin 81 mg Tablet,Delayed Release (Dr/Ec)
81 mg PO DAILY
pregabalin [Lyrica] 50 mg Capsule
50 mg PO HS
Tagrisso 80 mg Tablet
80 mg PO HS
magnesium oxide 400 mg magnesium Tablet
400 mg PO BID
Discharge Orders:
Discharge Patient (As Directed); Ordered 08/09/24
Ordered By: Clint Lucas
Discharge Date and Time
Discharge Date/Time: 08/09/24 12:32
Print Language: UKRAINIAN
[2024-08-09 11:40] VITALS: BP 101/62
--- NOTE | 2024-08-09 12:09 | CM ---
Patient stable for d/c today
Met w/ patient and spouse bedside. IMM verbally reviewed, copy given to patient, copy on chart
Current w/ [facility]
Spouse will transport home
[facility]
Plan: Home, [facility] w/ [facility]
== END 2024-08-09 12:32 | disposition home health service (06) | DRG 602 ==
LOC: 2 SOUTH 22:28
PROVIDERS: Student in an Organized Health Care Education/Training Program; ADMITTING PHYSICIAN Hospitalist; ATTENDING PHYSICIAN Internal Medicine; CONSULT PHYSICIAN Surgery; EMERGENCY PHYSICIAN Emergency Medicine; FAMILY PHYSICIAN Student in an Organized Health Care Education/Training Program; OTHER PHYSICIAN Student in an Organized Health Care Education/Training Program
PROC: 0Y900ZZ Drainage of Right Buttock, Open Approach (ICD-10-PCS; 2024-08-04)
PROC: 0J990ZZ Drainage of Buttock Subcutaneous Tissue and Fascia, Open Approach (ICD-10-PCS; 2024-08-05)
PROC: 30233N1 Transfusion of Nonautologous Red Blood Cells into Peripheral Vein, Percutaneous Approach (ICD-10-PCS; 2024-08-07)
DX: L02.31 Cutaneous abscess of buttock (principal); E43 Unspecified severe protein-calorie malnutrition; C34.90 Malignant neoplasm of unspecified part of unspecified bronchus or lung; C79.51 Secondary malignant neoplasm of bone; C79.31 Secondary malignant neoplasm of brain; Z68.1 Body mass index [BMI] 19.9 or less, adult; M60.08 Infective myositis, other site; L03.317 Cellulitis of buttock; L89.151 Pressure ulcer of sacral region, stage 1; I95.89 Other hypotension; I10 Essential (primary) hypertension; E78.00 Pure hypercholesterolemia, unspecified; K21.9 Gastro-esophageal reflux disease without esophagitis; D64.9 Anemia, unspecified; R32 Unspecified urinary incontinence; K59.03 Drug induced constipation; Z79.82 Long term (current) use of aspirin; Z92.3 Personal history of irradiation; Z87.891 Personal history of nicotine dependence; Z88.6 Allergy status to analgesic agent
CPT/HCPCS: 10060; 72193; 80048; 80053; 80202; 82607; 82728; 82746; 83540; 83550; 83605; 85014; 85018; 85025; 86850; 86900; 86901; 86920; 87040; 87070; 87075; 87077; 87147; 87186; 87205; 96365; 96367; 96375; 96376; 97163; 99285; P9016; Q9967